=== PATIENT | female | born 1950 | race African-American/Black ===

== ENCOUNTER 2016-06-01 12:06 | Emergency (ER) | payer SELFPAY ==
--- NOTE | 2016-06-01 12:17 | PDOC ---
History of Present Illness - General Chief Complaint: Cold Symptoms Stated Complaint: COUGH,CHILLS Time Seen by Provider: 06/01/16 12:13 History Source: Patient Exam Limitations: No Limitations - History of Present Illness Initial Comments: 65 yo F presents with congestion, persistent cough, and malaise for past 1 week. She has had intermittent fevers and chills, body aches. She had a flu shot this year. She has been taking various cold and flu medicines without relief. Up until today, the cough was dry, painful, and nonproductive. She has started to produce thick white sputum today. Past History - Past Medical History Allergies/Adverse Reactions: Allergies Allergy/AdvReac Type Severity Reaction Status Date / Time No Known Allergies Allergy Verified 06/01/16 12:08 Home Medications: Ambulatory Orders Nebivolol HCl [Bystolic] 5 mg PO DAILY 08/19/15 Albuterol Sulfate Inhaler - [Ventolin HFA Inhaler -] 1 - 2 inh PO QID #1 inhaler 06/01/16 Azithromycin [Zithromax 250mg Tablets -] 250 mg PO UTDICT #6 tab 06/01/16 Mucinex 06/01/16 Prednisone [Deltasone -] 40 mg PO DAILY #8 tablet 06/01/16 Valacyclovir HCl [Valtrex -] 500 mg PO BID 06/01/16 HTN: Yes Hypercholesterolemia: Yes Seizures: Yes - Psycho/Social/Smoking Cessation Hx Anxiety: No Suicidal Ideation: No Smoking Status: Yes Smoking History: Never smoked Have you smoked in the past 12 months: No Number of Cigarettes Smoked Daily: 0 Information on smoking cessation initiated: No Hx Alcohol Use: Yes (SOCIAL WEEKENDS) Drug/Substance Use Hx: No Substance Use Type: None Review of Systems - Review of Systems Able to Perform ROS?: Yes Comments:: GENERAL/CONSTITUTIONAL: No fever or chills. No weakness. HEAD, EYES, EARS, NOSE AND THROAT: No change in vision. +Sore throat and B/L ear pressure. CARDIOVASCULAR: No chest pain or shortness of breath. RESPIRATORY: +Cough and wheezing. No hemoptysis. GASTROINTESTINAL: No nausea, vomiting, diarrhea or constipation. GENITOURINARY: No dysuria, frequency, or change in urination. MUSCULOSKELETAL: No joint or muscle swelling or pain. No neck or back pain. SKIN: No rash NEUROLOGIC: No headache, vertigo, loss of consciousness, or change in strength/ sensation. ENDOCRINE: No increased thirst. No abnormal weight change. HEMATOLOGIC/LYMPHATIC: No anemia, easy bleeding, or history of blood clots. ALLERGIC/IMMUNOLOGIC: No hives or skin allergy. *Physical Exam - Vital Signs Last Vital Signs Temp Pulse Resp BP Pulse Ox 98.5 F 74 22 187/101 99 06/01/16 12:07 06/01/16 12:07 06/01/16 12:07 06/01/16 12:07 06/01/16 12:07 - Physical Exam Comments: GENERAL: Awake, alert, and fully oriented, in no acute distress. Appears ill but nontoxic. HEAD: No signs of trauma EYES: PERRLA, EOMI, sclera anicteric, conjunctiva clear ENT: Auricles normal inspection, hearing grossly normal. B/L TMs with clear effusions. EACs normal in appearance. Nose with boggy turbinates B/L. Oropharynx is erythematous. Tonsils mildly enlarged, no exudates. NECK: Normal ROM, supple, no lymphadenopathy, JVD, or masses LUNGS: Dec air entry B/L. +Diffuse exp wheezes. HEART: Regular rate and rhythm, normal S1 and S2, no murmurs, rubs or gallops ABDOMEN: Soft, nontender, normoactive bowel sounds. No guarding, no rebound. No masses EXTREMITIES: Normal range of motion, no edema. No clubbing or cyanosis. No cords, erythema, or tenderness NEUROLOGICAL: Cranial nerves II through XII grossly intact. Normal speech, normal gait SKIN: Warm, Dry, normal turgor, no rashes or lesions noted. Medical Decision Making - Medical Decision Making 06/01/16 14:04 Pt reassessed. SHe reports some improvement in her symptoms. She has improved air entry on lung exam, although still with scattered wheezes. Will treat with steroids, albuterol, and abx for acute bronchitis. *DC/Admit/Observation/Transfer Diagnosis at time of Disposition: Cough Acute bronchitis Qualifiers: Bronchitis organism: unspecified organism Qualified Code(s): J20.9 - Acute bronchitis, unspecified - Discharge Dispostion Disposition: HOME Condition at time of disposition: Improved Admit: No - Prescriptions Prescriptions: Prednisone [Deltasone -] 40 mg PO DAILY #8 tablet Albuterol Sulfate Inhaler - [Ventolin HFA Inhaler -] 1 - 2 inh PO QID #1 inhaler Azithromycin [Zithromax 250mg Tablets -] 250 mg PO UTDICT #6 tab - Patient Instructions Printed Discharge Instructions: DI for Acute Bronchitis
[2016-06-01 12:26] VITALS: TEMP 98.5; BMI 30.2
[2016-06-01] MEDS ORDERED: ALBUTEROL SO4 2.5/IPRATROPIUM 0.5 INH SOL 3 ML VIAL.NEB. NEB ONE (12:34)
[2016-06-01] MEDS: ALBUTEROL SO4 2.5/IPRATROPIUM 0.5 INH SOL 3 ML VIAL.NEB. NEB SCH ×3 (12:35→13:21)
[2016-06-01] MEDS ORDERED: predniSONE 20 MG TABLET (UD) PO ONE (14:00)
[2016-06-01] MEDS ORDERED: predniSONE 20 MG TABLET (UD) ONE (14:15)
[2016-06-01 14:24] VITALS: BP 168/80; PULSE 78
== END 2016-06-01 14:36 | disposition home or self-care (01) ==
LOC: FER 12:06
PROC: 3E0F7GC Introduction of Other Therapeutic Substance into Respiratory Tract, Via Natural or Artificial Opening (ICD-10-PCS; principal; 2016-06-01)
DX: J20.9 Acute bronchitis, unspecified (principal); R05 Cough; I10 Essential (primary) hypertension; E78.00 Pure hypercholesterolemia, unspecified; R56.9 Unspecified convulsions
CPT/HCPCS: 71020-TC; 87804; 99283-25

== ENCOUNTER 2017-09-05 11:48 | Emergency (ER) | payer OTHER ==
[2017-09-05 11:55] VITALS: TEMP 98.2; BMI 28.1
[2017-09-05] MEDS ORDERED: ASPIRIN 325 MG TABLET PO ONE (12:12)
[2017-09-05] MEDS ORDERED: ATORVASTATIN CA 80 MG TABLET (FP) PO ONE (12:12)
[2017-09-05] MEDS ORDERED: NITROGLYCERIN SUBLINGUAL 1/150 0.4 MG TAB SL PRN (12:13)
[2017-09-05] MEDS ORDERED: HEPARIN - 25,000 UNIT in SODIUM CHLORIDE 495 ML IV SCH (12:15)
[2017-09-05] MEDS ORDERED: HEPARIN NA (PORCINE) 5,000 UNITS/ML 1ML VIAL IVPUSH PRN ×3 (12:15→12:32)
--- NOTE | 2017-09-05 12:22 | PDOC ---
Attending Attestation - Resident Resident Name: CandyMahad - ED Attending Attestation I have performed the following: I have examined & evaluated the patient, The case was reviewed & discussed with the resident, I agree w/resident's findings & plan, Exceptions are as noted - HPI HPI: 09/05/17 12:19 67 F with h/o HTN, HLD, DM, hypothyroid presents to ED with chest pain, nausea, vomiting, and diaphoresis x 2 days. Pt states that the pain began 2 days ago with a burning sensation in her chest. This gradually worsened and progressed to a constant pressure-like pain. Pt endorses nausea and vomiting and profuse sweating. Denies SOB. Denies leg swelling. Denies tearing pain or radiation of pain to the back. - Physicial Exam PE: 09/05/17 12:20 "GENERAL: Awake, alert, and fully oriented, in no acute distress. HEAD: No signs of trauma EYES: PERRLA, EOMI, sclera anicteric, conjunctiva clear ENT: Auricles normal inspection, hearing grossly normal, nares patent, oropharynx clear without exudates. Moist mucosa NECK: Nontender, no stepoffs, Normal ROM, supple, no lymphadenopathy, JVD, or masses LUNGS: Breath sounds equal, clear to auscultation bilaterally. No wheezes, and no crackles HEART: Regular rate and rhythm, normal S1 and S2, no murmurs, rubs or gallops ABDOMEN: Soft, nontender, normoactive bowel sounds. No guarding, no rebound. No masses EXTREMITIES: Normal range of motion, no edema. No clubbing or cyanosis. No cords, erythema, or tenderness NEUROLOGICAL: Cranial nerves II through XII intact. 5/5 strength and sensation in all extremities, Normal speech, normal gait, normal cerebellar function SKIN: Warm, Dry, normal turgor, no rashes or lesions noted. " - Medical Decision Making 09/05/17 12:20 67 F with chest pain, diaphoresis, N/V. EKG with acute STEMI. 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
[2017-09-05] MEDS ORDERED: HEPARIN NA (PORCINE) 5,000 UNITS/ML 1ML VIAL IVPUSH ONE (12:32)
[2017-09-05] MEDS ORDERED: NITROGLYCERIN SUBLINGUAL 1/150 0.4 MG TAB ONE (12:33)
[2017-09-05] MEDS ORDERED: ASPIRIN 325 MG TABLET ONE (12:33)
[2017-09-05] MEDS ORDERED: ATORVASTATIN CA 80 MG TABLET (FP) ONE (12:34)
[2017-09-05] MEDS ORDERED: HEPARIN NA (PORCINE) 5,000 UNITS/ML 1ML VIAL ONE (12:34)
[2017-09-05] MEDS ORDERED: HEPARIN INFUSION - 25,000 UNITS/500 ML INFUS.BAG IVPB ONE (12:35)
[2017-09-05 12:37] LABS: BASO % 0.9 % (0-2.0); EOS % 0.9 % (0-4.5); HEMATOCRIT 45.3 % (32.4-45.2); MCH 28.4 pg (25.7-33.7); MCHC 33.1 g/dl (32.0-36.0); MEAN CELL VOLUME 85.6 fl (80-96); MEAN PLT VOLUME 8.7 fl (7.5-11.1); MONO % 9.7 % (3.8-10.2); NEUT % 53.5 % (42.8-82.8); PLATELET COUNT 260 K/MM3 (134-434); RBC 5.29 M/mm3 (3.60-5.2); RDW 14.5 % (11.6-15.6)
--- NOTE | 2017-09-05 12:39 | CON.CARD ---
Cardiology Consult (text) - Consultation Consultation Note: Cardiology Received a call from ER at 12: 24pm Returned call within 2 minutes and spoke to ER attending Dr. Wynn. He reports the patient is presenting with symptoms and ECG consistent with acute STEMI. The case was reviewed. Vitals are stable and oxygenation is normal. I am currently 35-45 minutes away from the hospital. Recommended: -stat Labs -ASA 325mg x 1 now -To begin UFH gtts provided no active absolute contraindications -To immediately activate the streamlined STEMI line to [facility] the ER has in place so patient can be transferred for cath -Plavix loading to be discussed with energy efficiency specialist crime prevention police officer, Dr. Wynn will do that. -Advised to proceed with above plans to avoid any therapeutic delay or transfer delay as ER has direct contact to [facility] labor/excavator for urgent STEMI -Will obtain ECG to review in interim
--- NOTE | 2017-09-05 12:55 | PDOC ---
History of Present Illness <Tamiko Wynnan - Last Filed: 09/05/17 13:06> - General History Source: Patient Exam Limitations: No Limitations - History of Present Illness Initial Comments: 09/05/17 14:27 67 F with h/o HTN, HLD, DM, hypothyroid presents to ED with chest pain, nausea, vomiting, and diaphoresis x 2 days. Pt states that the pain began 2 days ago with a burning sensation in her chest. This gradually worsened and progressed to a constant pressure-like pain. Pt endorses nausea and vomiting and profuse sweating after every time she eats. Denies SOB. Denies leg swelling. Denies tearing pain <CandyMahad - Last Filed: 09/05/17 14:29> - General Chief Complaint: Nausea/Vomiting Stated Complaint: VOMITTING Time Seen by Provider: 09/05/17 12:01 Past History <Pedro Wynn - Last Filed: 09/05/17 13:06> - Past Medical History COPD: No HTN: Yes Hypercholesterolemia: Yes Seizures: Yes Thyroid Disease: Yes - Suicide/Smoking/Psychosocial Hx Smoking Status: Yes Smoking History: Former smoker Have you smoked in the past 12 months: No Number of Cigarettes Smoked Daily: 0 If you are a former smoker, when did you quit?: 1993 Information on smoking cessation initiated: No Hx Alcohol Use: Yes (SOCIAL WEEKENDS) Drug/Substance Use Hx: No Substance Use Type: None <GuptaMahad - Last Filed: 09/05/17 14:29> - Past Medical History Allergies/Adverse Reactions: Allergies Allergy/AdvReac Type Severity Reaction Status Date / Time No Known Allergies Allergy Verified 09/05/17 11:52 Home Medications: Ambulatory Orders Nebivolol HCl [Bystolic] 5 mg PO DAILY 08/19/15 Albuterol Sulfate Inhaler - [Ventolin HFA Inhaler -] 1 - 2 inh PO QID #1 inhaler 06/01/16 Azithromycin [Zithromax 250mg Tablets -] 250 mg PO UTDICT #6 tab 06/01/16 Mucinex 06/01/16 Valacyclovir HCl [Valtrex -] 500 mg PO BID 06/01/16 predniSONE [Deltasone -] 40 mg PO DAILY #8 tablet 06/01/16 Review of Systems - Review of Systems Able to Perform ROS?: Yes Is the patient limited Faroese proficient: No Constitutional: Yes: Diaphoresis HEENTM: No: Symptoms Reported Respiratory: Yes: See HPI Cardiac (ROS): Yes: See HPI ABD/GI: No: Symptoms Reported : No: Symptoms Reported Integumentary: Yes: See HPI All Other Systems: Reviewed and Negative <Mahad Gupta - Last Filed: 09/05/17 14:29> *Physical Exam - Vital Signs Last Vital Signs Temp Pulse Resp BP Pulse Ox 98.2 F 109 H 18 134/82 99 09/05/17 11:52 09/05/17 11:52 09/05/17 11:52 09/05/17 11:52 09/05/17 11:52 <KingsleyPedro - Last Filed: 09/05/17 13:06> - Vital Signs Last Vital Signs Temp Pulse Resp BP Pulse Ox 98.2 F 109 H 18 134/82 99 09/05/17 11:52 09/05/17 11:52 09/05/17 11:52 09/05/17 11:52 09/05/17 11:52 - Physical Exam Comments: 09/05/17 12:20 GENERAL: Awake, alert, and fully oriented, in no acute distress. HEAD: No signs of trauma EYES: PERRLA, EOMI, sclera anicteric, conjunctiva clear ENT: Auricles normal inspection, hearing grossly normal, nares patent, oropharynx clear without exudates. Moist mucosa NECK: Nontender, no stepoffs, Normal ROM, supple, no lymphadenopathy, JVD, or masses LUNGS: Breath sounds equal, clear to auscultation bilaterally. No wheezes, and no crackles HEART: Regular rate and rhythm, normal S1 and S2, no murmurs, rubs or gallops ABDOMEN: Soft, nontender, normoactive bowel sounds. No guarding, no rebound. No masses EXTREMITIES: Normal range of motion, no edema. No clubbing or cyanosis. No cords, erythema, or tenderness NEUROLOGICAL: Cranial nerves II through XII intact. 5/5 strength and sensation in all extremities, Normal speech, normal gait, normal cerebellar function SKIN: Warm, Dry, normal turgor, no rashes or lesions noted. <Mahad Gupta - Last Filed: 09/05/17 14:29> ED Treatment Course - LABORATORY CBC & Chemistry Diagram: 09/05/17 12:25 09/05/17 12:25 - ADDITIONAL ORDERS Additional order review: 09/05/17 12:25 RBC 5.29 H MCV 85.6 MCHC 33.1 RDW 14.5 MPV 8.7 Neutrophils % 53.5 Lymphocytes % 35.0 Monocytes % 9.7 Eosinophils % 0.9 Basophils % 0.9 - RADIOLOGY Radiology Studies Ordered: Category Date Time Status CHEST X-RAY PORTABLE* [RAD] Stat Radiology 09/05/17 12:12 Ordered - Medications Given in the ED: ED Medications Discontinued Medications Generic Name Dose Route Start Last Admin Trade Name Freq PRN Reason Stop Dose Admin Aspirin 325 mg 09/05/17 12:12 09/05/17 12:48 Asa - PO 09/05/17 12:13 325 mg ONCE ONE Administration Atorvastatin Calcium 80 mg 09/05/17 12:12 09/05/17 12:48 Lipitor - PO 09/05/17 12:13 80 mg ONCE ONE Administration <Pedro Wynn - Last Filed: 09/05/17 13:06> - LABORATORY CBC & Chemistry Diagram: 09/05/17 12:25 09/05/17 12:25 - ADDITIONAL ORDERS Additional order review: 09/05/17 12:25 RBC 5.29 H MCV 85.6 MCHC 33.1 RDW 14.5 MPV 8.7 Neutrophils % 53.5 Lymphocytes % 35.0 Monocytes % 9.7 Eosinophils % 0.9 Basophils % 0.9 - Medications Given in the ED: ED Medications Discontinued Medications Generic Name Dose Route Start Last Admin Trade Name Freq PRN Reason Stop Dose Admin Aspirin 325 mg 09/05/17 12:12 09/05/17 12:48 Asa - PO 09/05/17 12:13 325 mg ONCE ONE Administration Atorvastatin Calcium 80 mg 09/05/17 12:12 09/05/17 12:48 Lipitor - PO 09/05/17 12:13 80 mg ONCE ONE Administration <Mahad Gupta - Last Filed: 09/05/17 14:29> Medical Decision Making - Medical Decision Making 09/05/17 14:29 67 F with chest pain, diaphoresis, N/V. EKG with acute STEMI. 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
[2017-09-05 13:01] LABS: ALBUMIN 4.4 g/dl (3.4-5.0); ANION GAP 7 (8-16); BILIRUBIN,TOTAL 0.6 mg/dL (0.2-1.0); BLOOD UREA NITROGEN 23 mg/dL (7-18); CHLORIDE 99 mmol/L (98-107); CO2 30 mmol/L (21-32); CREATININE 1.2 mg/dL (0.55-1.02); GLUCOSE,RANDOM 103 mg/dL (74-106); SGPT/ALT 27 U/L (12-78); SODIUM 136 mmol/L (136-145); TOT PROT 8.9 g/dl (6.4-8.2)
[2017-09-05 13:02] LABS: ALK PHOS 84 U/L (45-117); N-TERMINAL BNP 6201.48 pg/ml (5-125)
[2017-09-05 13:06] LABS: POTASSIUM 4.5 mmol/L (3.5-5.1); SGOT/AST 38 U/L (15-37)
--- NOTE | 2017-09-05 13:11 | EKG ---
Test Reason : Blood Pressure : / mmHG Vent. Rate : 097 BPM Atrial Rate : 097 BPM P-R Int : 182 ms QRS Dur : 082 ms QT Int : 402 ms P-R-T Axes : 063 062 206 degrees QTc Int : 510 ms NORMAL SINUS RHYTHM POSSIBLE LEFT ATRIAL ENLARGEMENT ST ELEVATION CONSIDER LATERAL INJURY OR ACUTE INFARCT PROLONGED QT ACUTE CT / STEMI ABNORMAL ECG WHEN COMPARED WITH ECG OF 19-AUG-2015 20:36, T WAVE INVERSION NOW EVIDENT IN INFERIOR LEADS T WAVE INVERSION NOW EVIDENT IN ANTEROLATERAL LEADS QT HAS LENGTHENED Confirmed by MD Clarence, Jeremiah ([id number]) on 09/05/2017 1:11:00 PM Referred By: Confirmed By:Jeremiah Lima MD
[2017-09-05 13:18] LABS: INR 1.06 (0.82-1.09)
[2017-09-05 13:21] LABS: ACTIVATED PTT 31.1 SECONDS (26.9-34.4)
[2017-09-05 13:26] VITALS: BP 130/83; PULSE 115
== END 2017-09-05 13:06 | disposition short-term general hospital (02) ==
LOC: JER 11:48
PROC: 3E033GC Introduction of Other Therapeutic Substance into Peripheral Vein, Percutaneous Approach (ICD-10-PCS; principal; 2017-09-05)
DX: I21.3 ST elevation (STEMI) myocardial infarction of unspecified site (principal); I10 Essential (primary) hypertension; E78.5 Hyperlipidemia, unspecified; E11.9 Type 2 diabetes mellitus without complications; E03.9 Hypothyroidism, unspecified; Z87.891 Personal history of nicotine dependence
CPT/HCPCS: 36415; 80053; 82550; 82553; 83880; 84484; 85025; 85610; 85730; 93005; 93010; 96374; 96376; 99285-25; J1644

== ENCOUNTER 2017-10-29 21:07 | Inpatient (IN) | payer OTHER ==
--- NOTE | 2017-10-29 21:14 | PDOC ---
Rapid Medical Evaluation Time Seen by Provider: 10/29/17 21:11 Medical Evaluation: Allergies Allergy/AdvReac Type Severity Reaction Status Date / Time No Known Allergies Allergy Verified 09/05/17 11:52 10/29/17 21:11 The patient presents with a chief complaint of: elevated bp readings I have performed a brief in-person evaluation of this patient. Pertinent physical exam findings: vss, I have ordered the following: provider to determine The patient will proceed to the ED for further evaluation. Discharge Disposition - Referrals Referrals: Kayode Brown MD [Primary Care Provider] - - Patient Instructions - Post Discharge Activity
[2017-10-29 21:18] VITALS: BMI 27.8
--- NOTE | 2017-10-29 22:05 | PDOC ---
History of Present Illness - General Chief Complaint: Blood Pressure Problem Stated Complaint: BLOOD PRESSURE PROBLEM Time Seen by Provider: 10/29/17 21:11 History Source: Patient Exam Limitations: No Limitations - History of Present Illness Initial Comments: This is a 67 YOF with h/o recent STEMI (seen here in the ED on 09/05/17 and transferred to [facility] where she had left heart cath), HTN, HLD, CHF, DM, and hypothyroid who presents c/o elevated blood pressure readings at home over the past few days, without any new symptoms, and despite taking her normal blood pressure medications (lisinopril 40 mg) 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 She denies headache, vision changes, new numbness/tingling/focal weakness, chest pain, SOB, abdominal pain, or any other recent symptoms. She was discontinued off Lasix about a month ago. Her PCP is Dr. Canela and her medical i d sales is Dr. Holder. Past History - Past Medical History Allergies/Adverse Reactions: Allergies Allergy/AdvReac Type Severity Reaction Status Date / Time No Known Allergies Allergy Verified 10/29/17 21:11 Home Medications: Ambulatory Orders Aspirin [ASA -] 81 mg PO DAILY 10/29/17 Atorvastatin Ca [Lipitor] 10 mg PO HS 10/29/17 Carvedilol 6.25 mg PO BID 10/29/17 Lisinopril [Prinivil -] 40 mg PO DAILY 10/29/17 Methimazole 5 mg PO TID 10/29/17 Methocarbamol 500 mg PO PRN PRN 10/29/17 Tramadol HCl 50 mg PO DAILY PRN 10/29/17 COPD: No HTN: Yes Hypercholesterolemia: Yes Seizures: Yes Thyroid Disease: Yes - Suicide/Smoking/Psychosocial Hx Smoking Status: Yes Smoking History: Former smoker Have you smoked in the past 12 months: No Number of Cigarettes Smoked Daily: 0 If you are a former smoker, when did you quit?: 1993 Information on smoking cessation initiated: No Hx Alcohol Use: No Drug/Substance Use Hx: No Substance Use Type: None Review of Systems - Review of Systems Able to Perform ROS?: Yes Constitutional: No: Chills, Fever, Unexplained wgt Loss HEENTM: No: Nose Congestion, Throat Pain Respiratory: No: Cough, Shortness of Breath Cardiac (ROS): No: Chest Pain, Palpitations ABD/GI: No: Constipated, Diarrhea, Nausea, Vomiting : No: Burning, Dysuria Musculoskeletal: No: Back Pain, Neck Pain Integumentary: No: Bruising, Rash Neurological: No: Headache, Numbness, Tingling, Weakness, Dizziness Endocrine: No: Unexplained Weight Gain, Unexplained Weight Loss *Physical Exam - Vital Signs Last Vital Signs Temp Pulse Resp BP Pulse Ox 98.3 F 86 18 162/106 99 10/29/17 21:11 10/29/17 21:11 10/29/17 21:11 10/29/17 21:11 10/29/17 21:11 - Physical Exam General Appearance: Yes: Nourished, Appropriately Dressed, Other (nontoxic and well appearing adul female in no distress answering questions appropriately). No: Apparent Distress HEENT: positive: EOMI, Normal Voice, Hearing Grossly Normal. negative: Scleral Icterus (R), Scleral Icterus (L), Nasal Congestion Neck: positive: Trachea midline, Supple. negative: Tender, Rigid Respiratory/Chest: positive: Lungs Clear, Normal Breath Sounds. negative: Respiratory Distress, Crackles, Rhonchi, Stridor, Wheezing Cardiovascular: positive: Regular Rhythm, Regular Rate, S1, S2. negative: Edema , JVD, Murmur Gastrointestinal/Abdominal: positive: Normal Bowel Sounds, Soft. negative: Tender, Organomegaly, Pulsatile Mass, Guarding Musculoskeletal: positive: Normal Inspection. negative: Decreased Range of Motion, Vertebral Tenderness Extremity: positive: Normal Capillary Refill, Normal Inspection, Normal Range of Motion. negative: Tender, Cyanosis Integumentary: positive: Normal Color, Dry, Warm. negative: Erythema, Rash, Bruising Neurologic: positive: masseur/masseuse II-XII NML intact, Fully Oriented, Alert, Normal Mood/ Affect, Normal Response, Motor Strength 5/5 Heart Score/ECG Review #1 NSR, rate 60, with TWI in I, II, aVL, [id number] ED Treatment Course - LABORATORY CBC & Chemistry Diagram: 10/29/17 22:27 10/29/17 22:27 Medical Decision Making - Medical Decision Making 10/29/17 22:05 Adult patient with h/o recent STEMI p/w HTN. Initial Vital Signs Temp Pulse Resp BP Pulse Ox 98.3 F 86 18 162/106 99 10/29/17 21:11 10/29/17 21:11 10/29/17 21:11 10/29/17 21:11 10/29/17 21:11 Exam: As noted in Physical Exam section. DDX IBNLT: stress/pain response, primary (essential) HTN, renal disease, medications (e.g. OCPs, NSAIDs, antidepressants, steroids), hypercortisolism ( Barb syndrome), primary hyperaldosteronism (Conn syndrome), pheochromocytoma , hyper/hypothyroidism, hyperparathyroidism, coarctation of aorta, obstructive sleep apnea, etc. Main emergency concern is to r/o hypertensive emergency. W/U ordered: CBC, CMP, Mg, Phos, TSH, Cardiac panel, BNP, UA, UCx, EKG, CXR TX ordered: lisinopril, carvedilol Unlikely hypertensive emergency at Pt has no VALDEZ, AMS, visual change, neuro sxs, angina, pulmonary edema, or e/o acute renal failure. EKG: Reviewed; results as noted in ECG Review section. Laboratory Tests 10/29/17 10/29/17 10/29/17 22:27 22:27 22:54 WBC 4.2 RBC 3.93 Hgb 11.4 Hct 33.7 D MCV 85.7 MCH 29.0 MCHC 33.8 RDW 14.5 Plt Count 194 D MPV 8.5 Absolute Neuts (auto) 1.6 Neutrophils % 38.5 L D Lymphocytes % 49.3 H D Monocytes % 8.3 Eosinophils % 2.9 D Basophils % 1.0 Nucleated RBC % 0 Sodium 143 Potassium 4.1 Chloride 107 Carbon Dioxide 31 Anion Gap 5 L BUN 24 H Creatinine 1.3 H Creat Clearance w eGFR 40.73 Random Glucose 98 Calcium 8.8 Phosphorus 3.6 Magnesium 2.3 Total Bilirubin 0.3 AST 14 L ALT 21 Alkaline Phosphatase 71 Creatine Kinase 116 Troponin I < 0.02 B-Natriuretic Peptide 126.36 H Total Protein 7.0 Albumin 3.7 TSH 3.74 Urine Color Straw Urine Appearance Clear Urine pH 6.0 Ur Specific [place] 1.012 Urine Protein Negative Urine Glucose (UA) Negative Urine Ketones Negative Urine Blood Negative Urine Nitrite Negative Urine Bilirubin Negative Urine Urobilinogen Negative Ur Leukocyte Esterase Negative BUN and Cr are a bit elevated but similar to prior values. Reassessment: Patient states feeling the same, very worried about her heart and does not want to go home. Repeat VS: LUE BP re-checked to be 180/104 ADMIT The Pt is unsafe for discharge at this time. They require further hospital observation, workup, and treatment. Microblog sent to [facility] for admission. Decision to Admit order placed for Tele Obs, Dr. Youssef. *DC/Admit/Observation/Transfer Diagnosis at time of Disposition: T wave inversion in EKG, ALECIA (acute kidney injury) Hypertension Qualifiers: Hypertension type: unspecified Qualified Code(s): I10 - Essential (primary) hypertension - Discharge Dispostion Condition at time of disposition: Guarded Decision to Admit order: Yes - Referrals - Patient Instructions - Post Discharge Activity
--- NOTE | 2017-10-29 22:10 | PDOC ---
Attending Attestation - Resident Resident Name: Selina Walter - ED Attending Attestation I have performed the following: I have examined & evaluated the patient, The case was reviewed & discussed with the resident, I agree w/resident's findings & plan - HPI HPI: 10/29/17 22:36 The patient is a 67 year old female, with a significant past medical history of STEMI (08/2017 s/p catheter), HTN, HLD, DM, hypothyroidism, who presents to the emergency department with, elevated blood pressure. As per patient, she has been obtaining elevated blood pressure readings lately. She reports an approximately 20 point systolic difference between her right and left arm readings. She is currently being followed up by Dr. Brown for this. Prior to her arrival she took an extra dosage of her Lisinopril. She reports to be asymptomatic at this time. She denies recent fevers, chills, headache or dizziness. She denies recent nausea, vomit, diarrhea or constipation. She denies recent dysuria, frequency, urgency or hematuria. She denies recent chest pain or shortness of breath. Allergies: NKA Primary Care Physician: Dr. Brown - Physicial Exam PE: 10/30/17 07:15 Agree with resident exam. <Rafael Muse - Last Filed: 10/30/17 07:15> - Medical Decision Making 10/30/17 19:53 Pt comes with uncontrolled BP, despite compliance with her meds. She has no physical complaints. She comes because her BP was running high and she got scared. We will treat her with extra doses of her meds. Pt will be admitted to obs, as needed. <Koki Dick - Last Filed: 10/30/17 19:54> Heart Score/ECG Review #1 10/30/17 00:11 EKG performed at: 30 October 2017 at 0:00:17 Vent Rate 60 bpm [place] interval 204 ms QRS duration 82 ms QT/QTc 452/452 ms P-R-T axes 70 55 144 Normal sinus rhythm T wave abnormality, consider anterolateral ischemia Abnormal ECG <Rafael Muse - Last Filed: 10/30/17 07:15> Attestations - Attestations 10/29/17 22:37 Documentation prepared by Nirvannie Goberdan, acting as resident medical officer for Koki Dick MD. <Rafael Muse - Last Filed: 10/30/17 07:15>
[2017-10-29] MEDS ORDERED: CARVEDILOL 6.25 MG TABLET (FP) PO ONE (22:41)
[2017-10-29] MEDS ORDERED: LISINOPRIL 20 MG TABLET (FP) PO ONE (22:42)
[2017-10-29] MEDS ORDERED: CARVEDILOL 3.125 MG TABLET (FP) ONE (22:49)
[2017-10-29] MEDS ORDERED: LISINOPRIL 20 MG TABLET (FP) ONE (22:49)
[2017-10-29 22:52] LABS: EOS % 2.9 % (0-4.5); HEMATOCRIT 33.7 % (32.4-45.2); HEMOGLOBIN 11.4 GM/dL (10.7-15.3); LYMPH % 49.3 % (8-40); MCHC 33.8 g/dl (32.0-36.0); MEAN CELL VOLUME 85.7 fl (80-96); MEAN PLT VOLUME 8.5 fl (7.5-11.1); MONO % 8.3 % (3.8-10.2); NEUT % 38.5 % (42.8-82.8); PLATELET COUNT 194 K/MM3 (134-434); RBC 3.93 M/mm3 (3.60-5.2); RDW 14.5 % (11.6-15.6); WHITE BLOOD COUNT 4.2 K/mm3 (4.0-10.0)
[2017-10-29 23:10] LABS: URINE APPEARANCE CLEAR; URINE BILIRUBIN NEGATIVE (<2.0 mg/dL); URINE COLOR STRAW; URINE GLUCOSE (UA) NEGATIVE (NEGATIVE); URINE KETONE NEGATIVE (NEGATIVE); URINE LEUK ESTERASE NEGATIVE (NEGATIVE); URINE NITRITE NEGATIVE (NEGATIVE); URINE PROTEIN NEGATIVE (NEGATIVE); URINE UROBILINOGEN NEGATIVE mg/dL (0.2-1.0)
[2017-10-29 23:11] LABS: ALBUMIN 3.7 g/dl (3.4-5.0); ANION GAP 5 (8-16); BILIRUBIN,TOTAL 0.3 mg/dL (0.2-1.0); BLOOD UREA NITROGEN 24 mg/dL (7-18); CALCIUM 8.8 mg/dL (8.5-10.1); CHLORIDE 107 mmol/L (98-107); CO2 31 mmol/L (21-32); CREATININE 1.3 mg/dL (0.55-1.02); GLUCOSE,RANDOM 98 mg/dL (74-106); MAGNESIUM 2.3 mg/dL (1.8-2.4); PHOSPHOROUS 3.6 mg/dL (2.5-4.9); POTASSIUM 4.1 mmol/L (3.5-5.1); SGOT/AST 14 U/L (15-37); SGPT/ALT 21 U/L (12-78); SODIUM 143 mmol/L (136-145)
[2017-10-29 23:20] LABS: ALK PHOS 71 U/L (45-117); N-TERMINAL BNP 126.36 pg/ml (5-125)
[2017-10-30] MEDS ORDERED: hydrALAZINE HCL 20 MG/ML VIAL IVPUSH ONE (02:16)
--- NOTE | 2017-10-30 02:23 | HP ---
CHIEF COMPLAINT: "HTN" PCP: Dr. Love HISTORY OF PRESENT ILLNESS: Patient is a 67 y/o female with a history of recent STEMI (09/05), HTN, HLD, CHF , DM, and hyperthyroidism who presents with high blood pressure. She took her blood pressure at home and had readings of 201/109 in the left arm and 167/101 in the right arm. She states she saw her PCP on the 10/25 and she had high blood pressure there but they did not change any of the medication. She has a follow up appointment for wednesday. She states she is compliant with her medications. She tries to eat a low salt diet. She denies headache, chest pain, nausea, blurry vision, or dizziness. ER course was notable for: (1) (2) (3) Recent Travel: no PAST MEDICAL HISTORY: STEMI (09/05), HTN, HLD, CHF, DM, and hyperthyroidism PAST SURGICAL HISTORY: Social History: Smoking: quit in Alcohol: socially Drugs: denies Family History: Allergies No Known Allergies Allergy (Verified 10/29/17 21:11) HOME MEDICATIONS: Home Medications Medication Instructions Recorded Aspirin [ASA -] 81 mg PO DAILY 10/29/17 Atorvastatin Ca [Lipitor] 10 mg PO HS 10/29/17 Carvedilol 6.25 mg PO BID 10/29/17 Lisinopril [Prinivil -] 40 mg PO DAILY 10/29/17 Methimazole 5 mg PO TID 10/29/17 Methocarbamol 500 mg PO PRN PRN 10/29/17 Tramadol HCl 50 mg PO DAILY PRN 10/29/17 REVIEW OF SYSTEMS CONSTITUTIONAL: Absent: fever, chills, diaphoresis, generalized weakness, malaise, loss of appetite, HEENT: Absent: difficulty swallowing, mouth swelling, ear pain, eye pain, visual changes CARDIOVASCULAR: Absent: chest pain, syncope, palpitations, irregular heart rate, lightheadedness , peripheral edema RESPIRATORY: Absent: cough, shortness of breath, dyspnea with exertion, orthopnea, wheezing, stridor, hemoptysis GASTROINTESTINAL: Absent: abdominal pain, abdominal distension, nausea, vomiting, diarrhea, constipation, melena, hematochezia GENITOURINARY: Absent: dysuria, frequency, urgency, hesitancy, hematuria, flank pain, genital pain MUSCULOSKELETAL: Absent: myalgia, arthralgia, joint swelling, back pain, neck pain NEUROLOGIC: Absent: headache, focal weakness or paresthesias, dizziness, unsteady gait, seizure, bladder or bowel incontinence PSYCHIATRIC: Absent: anxiety, depression, PHYSICAL EXAMINATION Vital Signs - 24 hr 10/29/17 10/29/17 21:11 22:05 Temperature 98.3 F Pulse Rate 86 Respiratory 18 Rate Blood Pressure 162/106 Blood Pressure 161/81 [Left Arm] Blood Pressure 183/95 [Right Arm] O2 Sat by Pulse 99 Oximetry (%) GENERAL: Awake, alert, and fully oriented, in no acute distress. HEAD: Normal with no signs of trauma. EYES: Pupils equal, round and reactive to light, extraocular movements intact, EARS, NOSE, THROAT: Moist mucous membranes. NECK: Normal range of motion, supple without lymphadenopathy, JVD, or masses. LUNGS: Breath sounds equal, clear to auscultation bilaterally. HEART: Regular rate and rhythm, normal S1 and S2 without murmur, rub or gallop. ABDOMEN: Soft, nontender, not distended, normoactive bowel sounds MUSCULOSKELETAL: Normal range of motion at all joints. No bony deformities or tenderness. No CVA tenderness. LOWER EXTREMITIES: No peripheral edema. NEUROLOGICAL: Cranial nerves II-XII intact. Normal speech. Normal gait. Laboratory Results - last 24 hr 10/29/17 10/29/17 10/29/17 22:27 22:27 22:54 WBC 4.2 RBC 3.93 Hgb 11.4 Hct 33.7 D MCV 85.7 MCH 29.0 MCHC 33.8 RDW 14.5 Plt Count 194 D MPV 8.5 Absolute Neuts (auto) 1.6 Neutrophils % 38.5 L D Lymphocytes % 49.3 H D Monocytes % 8.3 Eosinophils % 2.9 D Basophils % 1.0 Nucleated RBC % 0 Sodium 143 Potassium 4.1 Chloride 107 Carbon Dioxide 31 Anion Gap 5 L BUN 24 H Creatinine 1.3 H Creat Clearance w eGFR 40.73 Random Glucose 98 Calcium 8.8 Phosphorus 3.6 Magnesium 2.3 Total Bilirubin 0.3 AST 14 L ALT 21 Alkaline Phosphatase 71 Creatine Kinase 116 Troponin I < 0.02 B-Natriuretic Peptide 126.36 H Total Protein 7.0 Albumin 3.7 TSH 3.74 Urine Color Straw Urine Appearance Clear Urine pH 6.0 Ur Specific [place] 1.012 Urine Protein Negative Urine Glucose (UA) Negative Urine Ketones Negative Urine Blood Negative Urine Nitrite Negative Urine Bilirubin Negative Urine Urobilinogen Negative Ur Leukocyte Esterase Negative ASSESSMENT/PLAN: Patient is a 67 y/o female with a history of recent STEMI (09/05), HTN, HLD, CHF , DM, and hyperthyroidism who presents with hypertension. #HTN - Hydralazine IV push 10 mg - Carvedilol 12.5 BID - Lisinopril 20 mg BID - HCTZ 12.5 qam - f/u BP - TSH within normal limits : 3.74 #STEMI on 09/05 - aspirin 81 mg #HLD - Atorvastatin 10 mg #Hyperthyroidism - Methimazole 500 mg #Chronic low back pain - home medications held for now #DVT ppx - Heparin TID Visit type - Emergency Visit Emergency Visit: Yes ED Registration Date: 10/30/17 Care time: The patient presented to the Emergency Department on the above date and was hospitalized for further evaluation of their emergent condition. - New Patient This patient is new to me today: Yes Date on this admission: 10/30/17 - Critical Care Critical Care patient: No Hospitalist Screening - Colonoscopy Questionnaire Colonoscopy Questionnaire: Colonoscopy Questionnaire - Patient: 50 - 75 years old and never had a screening colonoscopy: Unknown History of colon or rectal polyps, or CA: Unknown History of IBD, Crohn's disease or UC: Unknown History of abdominal radiation therapy as a child: Unknown - Relative: 1 with colon or rectal CA, or polyps at age 60 or younger: Unknown Colon or rectal CA diagnosed at age 45 or younger: Unknown Multiple relatives with colon or rectal CA: Unknown - Outcome: Screening Result: Negative Screen
--- NOTE | 2017-10-30 02:45 | PN ---
Teaching Attending Note Name of Resident: Lina Hager ATTENDING PHYSICIAN STATEMENT I saw and evaluated the patient. I reviewed the resident's note and discussed the case with the resident. I agree with the resident's findings and plan as documented. SUBJECTIVE: Patient is a 67 year old woman with h/o recent STEMI (seen here in the ED on 01/13 and transferred to [facility] where she had left heart cath), HTN, HLD, CHF, DM , and hypothyroid who presents c/o elevated blood pressure readings at home over the past few days, without any new symptoms, and despite taking her normal blood pressure medications (lisinopril 40 mg) and an extra dose tonight [employer]. Has had hypertenison for over 10 years but has never had consistently good control according to her. She denies headache, vision changes, new numbness/ tingling/focal weakness, chest pain, SOB, abdominal pain, or any other recent symptoms. She was discontinued off Lasix about a month ago. OBJECTIVE: Alert and in no acute distress Vital Signs Period Temp Pulse Resp BP Sys/Quach Pulse Ox Last 24 Hr 98.3 F 86 18 161-183/81-106 99 HEENT: No Jaundice, eye redness or discharge, PERRLA, EOMI. Fundi not seen. Normocephalic, atraumatic. External ears are normal and hearing is grossly intact. No nasal discharge. Neck: Supple, nontender. No palpable adenopathy or thyromegaly. No JVD Chest: Good effort. Clear to auscultation and percussion. Heart: Regular. No S3, rub or murmur Abdomen: Not distended, soft, nontender and no HSM. No rebound or guarding. Normoactive bowel sounds. Ext: Peripheral pulses intact. No leg edema. Skin: Warm and dry. No petechiae, rash or ecchymosis. Neuro: Alert. Oriented x3. CN 2-12 grossly intact. Sensation grossly intact in all four extremities and DTR are symmetric. Current Medications Generic Name Dose Route Start Last Admin Trade Name Freq PRN Reason Stop Dose Admin Aspirin 81 mg 10/30/17 10:00 Asa - PO DAILY ARI Atorvastatin Calcium 10 mg 10/30/17 22:00 Lipitor - PO HS ARI Carvedilol 12.5 mg 10/30/17 10:00 Coreg - PO BID ARI Heparin Sodium (Porcine) 5,000 unit 10/30/17 06:00 Heparin - SQ TID [facility] Hydrochlorothiazide 12.5 mg 10/30/17 10:00 Hctz - PO DAILY [facility] Lisinopril 20 mg 10/30/17 10:00 Prinivil PO BID [facility] Methimazole 5 mg 10/30/17 06:00 Tapazole - PO TID [facility] Home Medications Medication Instructions Recorded Aspirin [ASA -] 81 mg PO DAILY 10/29/17 Atorvastatin Ca [Lipitor] 10 mg PO HS 10/29/17 Carvedilol 6.25 mg PO BID 10/29/17 Lisinopril [Prinivil -] 40 mg PO DAILY 10/29/17 Methimazole 5 mg PO TID 10/29/17 Methocarbamol 500 mg PO PRN PRN 10/29/17 Tramadol HCl 50 mg PO DAILY PRN 10/29/17 Abnormal Lab Results 10/29/17 10/29/17 22:27 22:27 Neutrophils % 38.5 L D Lymphocytes % 49.3 H D Anion Gap 5 L BUN 24 H Creatinine 1.3 H AST 14 L B-Natriuretic Peptide 126.36 H ASSESSMENT AND PLAN: 1. Hypertensive urgency - Reason for spike in her BP is unclear. Has failed to respond to oral medications in the ER. Elevated BUN/Cr may be related to hypertension. Will urge oral fluids to correct any superimposed dehydration. Will give one dose of IV hydralazine 10 mg and continue with oral regimen - Carvedilol, Lisinopril and HCTZ. No evidence of ACS at this time. Need for low salt diet, exercise and weight loss stressed. 2. CAD/Recent STEMI - Continue home regimen. 3. DVT prophylaxis - Heparin 5000u sq tid. 4. Advance directives - Full code
[2017-10-30] MEDS ORDERED: hydrALAZINE HCL 20 MG/ML VIAL ONE (03:07)
[2017-10-30] MEDS ORDERED: HEPARIN NA (PORCINE) 5,000 UNITS/ML 1ML VIAL ONE (06:21)
[2017-10-30] MEDS: METHIMAZOLE 5 MG TABLET (FP) PO SCH ×3 (06:40→22:02)
[2017-10-30] MEDS: HEPARIN NA (PORCINE) 5,000 UNITS/ML 1ML VIAL SQ SCH ×3 (06:40→22:01)
--- NOTE | 2017-10-30 09:05 | EKG ---
Test Reason : Blood Pressure : / mmHG Vent. Rate : 060 BPM Atrial Rate : 060 BPM P-R Int : 204 ms QRS Dur : 082 ms QT Int : 452 ms P-R-T Axes : 070 055 144 degrees QTc Int : 452 ms NORMAL SINUS RHYTHM T WAVE ABNORMALITY, CONSIDER ANTEROLATERAL ISCHEMIA ABNORMAL ECG WHEN COMPARED WITH ECG OF 05-SEP-2017 12:02, VENT. RATE HAS DECREASED BY [address] NO LONGER ELEVATED IN ANTEROLATERAL LEADS NONSPECIFIC T WAVE ABNORMALITY HAS REPLACED INVERTED T WAVES IN INFERIOR LEADS T WAVE INVERSION LESS EVIDENT IN LATERAL LEADS QT HAS SHORTENED Confirmed by ARIE VILLATORO, ROHAN ([id number]) on 10/30/2017 9:05:08 AM Referred By: Confirmed By:ROHAN SARGENT MD
[2017-10-30] MEDS: HYDROCHLOROTHIAZIDE 12.5 MG CAPSULE (FP) PO SCH (09:46)
[2017-10-30] MEDS: LISINOPRIL 20 MG TABLET (FP) PO SCH ×2 (09:46→22:02)
[2017-10-30] MEDS: ASPIRIN 81 MG CHEWABLE TABLETS PO SCH (09:46)
[2017-10-30] MEDS: CARVEDILOL 12.5 MG TABLET (FP) PO SCH ×2 (09:47→22:01)
[2017-10-30 10:10] LABS: URINE APPEARANCE CLEAR; URINE BILIRUBIN NEGATIVE (<2.0 mg/dL); URINE COLOR LTYELLOW; URINE GLUCOSE (UA) NEGATIVE (NEGATIVE); URINE KETONE NEGATIVE (NEGATIVE); URINE LEUK ESTERASE NEGATIVE (NEGATIVE); URINE NITRITE NEGATIVE (NEGATIVE); URINE PROTEIN NEGATIVE (NEGATIVE); URINE UROBILINOGEN NEGATIVE mg/dL (0.2-1.0)
--- NOTE | 2017-10-30 18:58 | HOSP ---
Subjective - Review of Symptoms Events since last encounter: Patient has no new symptoms , comfortable. Vital Signs Temperature 98.0 F 10/30/17 18:22 Pulse Rate 61 10/30/17 18:22 Respiratory Rate 18 10/30/17 18:22 Blood Pressure 167/101 10/30/17 18:22 O2 Sat by Pulse Oximetry (%) 98 10/30/17 18:22 GENERAL: Awake, alert, and fully oriented, in no acute distress. HEAD: Normal with no signs of trauma. EYES: Pupils equal, round and reactive to light, extraocular movements intact, EARS, NOSE, THROAT: Moist mucous membranes. NECK: Normal range of motion, supple without lymphadenopathy, JVD, or masses. LUNGS: Breath sounds equal, clear to auscultation bilaterally. HEART: Regular rate and rhythm, normal S1 and S2 without murmur, rub or gallop. ABDOMEN: Soft, nontender, not distended, normoactive bowel sounds MUSCULOSKELETAL: Normal range of motion at all joints. No bony deformities or tenderness. No CVA tenderness. EXTREMITIES: No peripheral edema. NEUROLOGICAL: Cranial nerves II-XII intact. Normal speech. Normal gait. CBCD WBC 4.2 K/mm3 (4.0-10.0) 10/29/17 22: RBC 3.93 M/mm3 (3.60-5.2) 10/29/17 22: Hgb 11.4 GM/dL (10.7-15.3) 10/29/17 22: Hct 33.7 % (32.4-45.2) D 10/29/17: MCV 85.7 fl (80-96) 10/29/17: MCHC 33.8 g/dl (32.0-36.0) 10/29/17 22: RDW 14.5 % (11.6-15.6) 10/29/17: Plt Count 194 K/MM3 (134-434) D 10/29/17: MPV 8.5 fl (7.5-11.1) 10/29/17 22: CMP Sodium 143 mmol/L (136-145) 10/29/17 22: Potassium 4.1 mmol/L (3.5-5.1) 10/29/17: Chloride 107 mmol/L (98-107) 10/29/17 22:27 Carbon Dioxide 31 mmol/L (21-32) 10/29/17 22:27 Anion Gap 5 (8-16) L 10/29/17 22:27 BUN 24 mg/dL (7-18) H 10/29/17 22:27 Creatinine 1.3 mg/dL (0.55-1.02) H 10/29/17 22:27 Creat Clearance w eGFR 40.73 (>60) 10/29/17 22:27 Random Glucose 98 mg/dL (74-106) 10/29/17 22:27 Calcium 8.8 mg/dL (8.5-10.1) 10/29/17 22:27 Total Bilirubin 0.3 mg/dL (0.2-1.0) 10/29/17 22:27 AST 14 U/L (15-37) L 10/29/17 22:27 ALT 21 U/L (12-78) 10/29/17 22:27 Alkaline Phosphatase 71 U/L (45-117) 10/29/17 22:27 Total Protein 7.0 g/dl (6.4-8.2) 10/29/17 22:27 Albumin 3.7 g/dl (3.4-5.0) 10/29/17 22:27 CARDIAC ENZYMES Creatine Kinase 116 IU/L (26-192) 10/29/17 22:27 Troponin I < 0.02 ng/ml (0.00-0.05) 10/30/17 05:03 Current Medications Generic Name Dose Route Start Last Admin Trade Name Arnulfoq PRN Reason Stop Dose Admin Aspirin 81 mg 10/30/17 10:00 10/30/17 09:46 Asa - PO 81 mg DAILY ARI Administration Atorvastatin Calcium 10 mg 10/30/17 22:00 Lipitor - PO HS [facility] Carvedilol 12.5 mg 10/30/17 10:00 10/30/17 09:47 Coreg - PO 12.5 mg BID ARI Administration Heparin Sodium (Porcine) 5,000 unit 10/30/17 06:00 10/30/17 14:21 Heparin - SQ 5,000 unit TID ARI Administration Hydrochlorothiazide 12.5 mg 10/30/17 10:00 10/30/17 09:46 Hctz - PO 12.5 mg DAILY ARI Administration Lisinopril 20 mg 10/30/17 10:00 10/30/17 09:46 Prinivil PO 20 mg BID ARI Administration Methimazole 5 mg 10/30/17 06:00 10/30/17 14:21 Tapazole - PO 5 mg TID ARI Administration Home Medications Medication Instructions Recorded Aspirin [ASA -] 81 mg PO DAILY 10/29/17 Atorvastatin Ca [Lipitor] 10 mg PO HS 10/29/17 Carvedilol 6.25 mg PO BID 10/29/17 Lisinopril [Prinivil -] 40 mg PO DAILY 10/29/17 Methimazole 5 mg PO TID 10/29/17 Methocarbamol 500 mg PO PRN PRN 10/29/17 Tramadol HCl 50 mg PO DAILY PRN 10/29/17 Laboratory Tests 10/29/17 10/30/17 22:27 05:03 Troponin I < 0.02 < 0.02 A/P: Patient is a 67 y/o female with a history of recent STEMI (09/05), HTN, HLD, CHF , DM, and hyperthyroidism who presents with high blood pressure. As per patient , she checked her blood pressure at home and had readings of 201/109 in the left arm and 167/101 in the right arm. # Hypertensive urgency - Failed to oral medications in the ER. given a dose of IV hydralazine 10 mg in ED. and continued with oral regimen - Carvedilol, Lisinopril and HCTZ. No evidence of ACS at this time. low salt diet, exercise and weight loss stressed. # ARF: Elevated BUN/Cr possible due to hypertension. gentle IV hydration given, repeat the levels in am. # CAD/Recent STEMI - Continue home regimen. DVT prophylaxis - Heparin 5000u sq tid. Advance directives - Full code Physical Examination Vital Signs: Vital Signs Temperature 98.0 F 10/30/17 18:22 Pulse Rate 61 10/30/17 18:22 Respiratory Rate 18 10/30/17 18:22 Blood Pressure 167/101 10/30/17 18:22 O2 Sat by Pulse Oximetry (%) 98 10/30/17 18:22 Labs: CBC, BMP 10/29/17 22:27 10/29/17 22:27
[2017-10-30] MEDS: ATORVASTATIN CA 10 MG TABLET (FP) PO SCH (22:01)
[2017-10-31] MEDS: METHIMAZOLE 5 MG TABLET (FP) PO SCH ×3 (06:12→21:02)
[2017-10-31] MEDS: HEPARIN NA (PORCINE) 5,000 UNITS/ML 1ML VIAL SQ SCH ×3 (06:12→21:02)
[2017-10-31 07:37] LABS: BASO % 1.3 % (0-2.0); EOS % 2.4 % (0-4.5); HEMATOCRIT 34.8 % (32.4-45.2); HEMOGLOBIN 11.8 GM/dL (10.7-15.3); LYMPH % 56.2 % (8-40); MCH 29.1 pg (25.7-33.7); MCHC 33.9 g/dl (32.0-36.0); MEAN CELL VOLUME 85.6 fl (80-96); MEAN PLT VOLUME 9.3 fl (7.5-11.1); MONO % 8.3 % (3.8-10.2); NEUT % 31.8 % (42.8-82.8); PLATELET COUNT 168 K/MM3 (134-434); RBC 4.06 M/mm3 (3.60-5.2); RDW 14.2 % (11.6-15.6); WHITE BLOOD COUNT 3.7 K/mm3 (4.0-10.0)
[2017-10-31 08:04] LABS: CHLORIDE 104 mmol/L (98-107); SODIUM 141 mmol/L (136-145)
[2017-10-31 08:18] LABS: ALBUMIN 3.6 g/dl (3.4-5.0); ALK PHOS 70 U/L (45-117); ANION GAP 8 (8-16); BILIRUBIN,TOTAL 0.5 mg/dL (0.2-1.0); BLOOD UREA NITROGEN 19 mg/dL (7-18); CALCIUM 9.1 mg/dL (8.5-10.1); CO2 29 mmol/L (21-32); CREATININE 0.8 mg/dL (0.55-1.02); GLUCOSE,RANDOM 84 mg/dL (74-106); SGOT/AST 17 U/L (15-37); SGPT/ALT 21 U/L (12-78); TOT PROT 7.1 g/dl (6.4-8.2)
[2017-10-31] MEDS: CARVEDILOL 12.5 MG TABLET (FP) PO SCH ×2 (10:08→21:03)
[2017-10-31] MEDS: LISINOPRIL 20 MG TABLET (FP) PO SCH ×2 (10:08→21:02)
[2017-10-31] MEDS: HYDROCHLOROTHIAZIDE 12.5 MG CAPSULE (FP) PO SCH (10:08)
[2017-10-31] MEDS: ASPIRIN 81 MG CHEWABLE TABLETS PO SCH (10:08)
[2017-10-31] MEDS ORDERED: amLODIPine BESYLATE 5 MG TABLET (FP) PO SCH (11:30)
--- NOTE | 2017-10-31 14:51 | PN ---
Progress Note (short form) - Note Progress Note: Patient is better but worried about having so elevated blood pressure Vital Signs Temperature 97.6 F 10/31/17 05:48 Pulse Rate 63 10/31/17 05:48 Respiratory Rate 18 10/31/17 09:00 Blood Pressure 146/74 10/31/17 05:48 O2 Sat by Pulse Oximetry (%) 98 10/31/17 09:00 GENERAL: Awake, alert, and fully oriented, in no acute distress. HEAD: Normal with no signs of trauma. EYES: Pupils equal, round and reactive to light, extraocular movements intact, EARS, NOSE, THROAT: Moist mucous membranes. NECK: Normal range of motion, supple without lymphadenopathy, JVD, or masses. LUNGS: Breath sounds equal, clear to auscultation bilaterally. HEART: Regular rate and rhythm, normal S1 and S2 without murmur, rub or gallop. ABDOMEN: Soft, nontender, not distended, normoactive bowel sounds MUSCULOSKELETAL: Normal range of motion at all joints. No bony deformities or tenderness. No CVA tenderness. EXTREMITIES: No peripheral edema. NEUROLOGICAL: Cranial nerves II-XII intact. Normal speech. Normal gait. CBCD WBC 3.7 K/mm3 (4.0-10.0) L 10/31/17 06:10 RBC 4.06 M/mm3 (3.60-5.2) 10/31/17 06:10 Hgb 11.8 GM/dL (10.7-15.3) 10/31/17 06:10 Hct 34.8 % (32.4-45.2) 10/31/17 06:10 MCV 85.6 fl (80-96) 10/31/17 06:10 MCHC 33.9 g/dl (32.0-36.0) 10/31/17 06:10 RDW 14.2 % (11.6-15.6) 10/31/17 06:10 Plt Count 168 K/MM3 (134-434) 10/31/17 06:10 MPV 9.3 fl (7.5-11.1) 10/31/17 06:10 CMP Sodium 141 mmol/L (136-145) 10/31/17 06:10 Potassium 4.0 mmol/L (3.5-5.1) 10/31/17 06:10 Chloride 104 mmol/L (98-107) 10/31/17 06:10 Carbon Dioxide 29 mmol/L (21-32) 10/31/17 06:10 Anion Gap 8 (8-16) 10/31/17 06:10 BUN 19 mg/dL (7-18) H 10/31/17 06:10 Creatinine 0.8 mg/dL (0.55-1.02) 10/31/17 06:10 Creat Clearance w eGFR > 60 (>60) 10/31/17 06:10 Random Glucose 84 mg/dL (74-106) 10/31/17 06:10 Calcium 9.1 mg/dL (8.5-10.1) 10/31/17 06:10 Total Bilirubin 0.5 mg/dL (0.2-1.0) 10/31/17 06:10 AST 17 U/L (15-37) 10/31/17 06:10 ALT 21 U/L (12-78) 10/31/17 06:10 Alkaline Phosphatase 70 U/L (45-117) 10/31/17 06:10 Total Protein 7.1 g/dl (6.4-8.2) 10/31/17 06:10 Albumin 3.6 g/dl (3.4-5.0) 10/31/17 06:10 CARDIAC ENZYMES Creatine Kinase 116 IU/L (26-192) 10/29/17 22:27 Troponin I < 0.02 ng/ml (0.00-0.05) 10/30/17 05:03 Current Medications Generic Name Dose Route Start Last Admin Trade Name Tita PRN Reason Stop Dose Admin Amlodipine Besylate 5 mg 10/31/17 11:30 10/31/17 12:36 Norvasc - PO 5 mg DAILY ARI Administration Aspirin 81 mg 10/30/17 10:00 10/31/17 10:08 Asa - PO 81 mg DAILY ARI Administration Atorvastatin Calcium 10 mg 10/30/17 22:00 10/30/17 22:01 Lipitor - PO 10 mg HS ARI Administration Carvedilol 12.5 mg 10/30/17 10:00 10/31/17 10:08 Coreg - PO 12.5 mg BID ARI Administration Heparin Sodium (Porcine) 5,000 unit 10/30/17 06:00 10/31/17 13:02 Heparin - SQ 5,000 unit TID ARI Administration Hydrochlorothiazide 12.5 mg 10/30/17 10:00 10/31/17 10:08 Hctz - PO 12.5 mg DAILY ARI Administration Lisinopril 20 mg 10/30/17 10:00 10/31/17 10:08 Prinivil PO 20 mg BID ARI Administration Methimazole 5 mg 10/30/17 06:00 10/31/17 13:01 Tapazole - PO 5 mg TID ARI Administration Home Medications Medication Instructions Recorded Aspirin [ASA -] 81 mg PO DAILY 10/29/17 Atorvastatin Ca [Lipitor] 10 mg PO HS 10/29/17 Methimazole 5 mg PO TID 10/29/17 Amlodipine Besylate [Norvasc -] 5 mg PO DAILY #30 tablet 10/31/17 Carvedilol [Coreg -] 12.5 mg PO BID #60 tablet 10/31/17 Hydrochlorothiazide [Hctz -] 12.5 mg PO DAILY #30 cap 10/31/17 A/P: Patient is a 67 y/o female with a history of recent STEMI (09/05), HTN, HLD, CHF , DM, and hyperthyroidism who presents with high blood pressure. As per patient , she checked her blood pressure at home and had readings of 201/109 in the left arm and 167/101 in the right arm. # Hypertensive urgency - improving, on oral Carvedilol, Lisinopril and HCTZ.increased to 25mg added Norvasc 10 mg daily , No evidence of ACS at this time. low salt diet, exercise and weight loss stressed. # ARF: Elevated BUN/Cr possible due to hypertension. gentle IV hydration given, repeat the levels in am. # CAD/Recent STEMI - Continue home regimen. DVT prophylaxis - Heparin 5000u sq tid. Advance directives - Full code Visit type - Emergency Visit Emergency Visit: Yes ED Registration Date: 10/30/17 Care time: The patient presented to the Emergency Department on the above date and was hospitalized for further evaluation of their emergent condition. - New Patient This patient is new to me today: No - Critical Care Critical Care patient: No - Discharge Referral Referred to [facility] No
[2017-10-31] MEDS ORDERED: amLODIPine BESYLATE 10 MG TABLET (FP) PO SCH (15:59)
--- NOTE | 2017-10-31 16:01 | PN ---
Physical Exam: SUBJECTIVE: Patient seen and examined at bedside. No acute events overnight. Pt complains of persistent high blood pressure but is currently asymptomatic. Denies headache/dizziness, nausea/vomiting, fever/chills. OBJECTIVE: Vital Signs Period Temp Pulse Resp BP Sys/Quach Pulse Ox Last 24 Hr 97.6 F-98.0 F 61-65 18-20 138-167/74-101 98-98 GENERAL: Awake, alert, and fully oriented, in no acute distress. HEAD: Normal with no signs of trauma. EYES: Pupils equal, round and reactive to light, extraocular movements intact, EARS, NOSE, THROAT: Moist mucous membranes. NECK: Normal range of motion, supple without lymphadenopathy, JVD, or masses. LUNGS: Breath sounds equal, clear to auscultation bilaterally. HEART: Regular rate and rhythm, normal S1 and S2 without murmur, rub or gallop. ABDOMEN: Soft, nontender, not distended, normoactive bowel sounds MUSCULOSKELETAL: Normal range of motion at all joints. No bony deformities or tenderness. No CVA tenderness. LOWER EXTREMITIES: No peripheral edema. NEUROLOGICAL: Cranial nerves II-XII intact. Normal speech. Normal gait. Laboratory Results - last 24 hr 10/31/17 10/31/17 06:10 06:10 WBC 3.7 L RBC 4.06 Hgb 11.8 Hct 34.8 MCV 85.6 MCH 29.1 MCHC 33.9 RDW 14.2 Plt Count 168 MPV 9.3 Absolute Neuts (auto) 1.2 Neutrophils % 31.8 L Lymphocytes % 56.2 H Monocytes % 8.3 Eosinophils % 2.4 Basophils % 1.3 Nucleated RBC % 0 Sodium 141 Potassium 4.0 Chloride 104 Carbon Dioxide 29 Anion Gap 8 BUN 19 H Creatinine 0.8 Creat Clearance w eGFR > 60 Random Glucose 84 Calcium 9.1 Total Bilirubin 0.5 AST 17 ALT 21 Alkaline Phosphatase 70 Total Protein 7.1 Albumin 3.6 Active Medications Generic Name Dose Route Start Last Admin Trade Name Freq PRN Reason Stop Dose Admin Amlodipine Besylate 10 mg 10/31/17 15:59 Norvasc - PO DAILY ARI Aspirin 81 mg 10/30/17 10:00 10/31/17 10:08 Asa - PO 81 mg DAILY ARI Administration Atorvastatin Calcium 10 mg 10/30/17 22:00 10/30/17 22:01 Lipitor - PO 10 mg HS ARI Administration Carvedilol 12.5 mg 10/30/17 10:00 10/31/17 10:08 Coreg - PO 12.5 mg BID ARI Administration Heparin Sodium (Porcine) 5,000 unit 10/30/17 06:00 10/31/17 13:02 Heparin - SQ 5,000 unit TID ARI Administration Hydrochlorothiazide 12.5 mg 10/30/17 10:00 10/31/17 10:08 Hctz - PO 12.5 mg DAILY ARI Administration Lisinopril 20 mg 10/30/17 10:00 10/31/17 10:08 Prinivil PO 20 mg BID ARI Administration Methimazole 5 mg 10/30/17 06:00 10/31/17 13:01 Tapazole - PO 5 mg TID ARI Administration ASSESSMENT/PLAN: 67F with a history of recent STEMI (09/05), HTN, HLD, CHF, DM, and hyperthyroidism who presents with hypertension. #HTN; BP persistently elevated despite BP meds given. Today 160/97. Pt is currently asymptomatic. -Increased Amlodipine from 5 to 10 mg PO QD -cont Carvedilol 12.5 mg PO BID -cont Lisinopril 20 mg PO BID -cont HCTZ 12.5 mg PO QAM -TSH within normal limits: 3.74 -Cardio consulted; await recs #STEMI on 09/05 -cont Aspirin 81 mg PO QD #HLD -cont Atorvastatin 10 mg PO HS #Hyperthyroidism -cont Methimazole 5 mg PO TID #Chronic low back pain - home medications held for now #DVT ppx - Heparin 5000U SQ TID #FEN -no IVf needed -lytes wnl, recheck lytes in AM -sodium-controlled diet dispo -full code Visit type - Emergency Visit Emergency Visit: Yes ED Registration Date: 10/30/17 Care time: The patient presented to the Emergency Department on the above date and was hospitalized for further evaluation of their emergent condition. - New Patient This patient is new to me today: Yes Date on this admission: 10/31/17 - Critical Care Critical Care patient: No
[2017-10-31] MEDS: ATORVASTATIN CA 10 MG TABLET (FP) PO SCH (21:03)
[2017-11-01] MEDS: METHIMAZOLE 5 MG TABLET (FP) PO SCH ×2 (05:24→13:01)
[2017-11-01] MEDS: HEPARIN NA (PORCINE) 5,000 UNITS/ML 1ML VIAL SQ SCH ×2 (05:24→13:01)
[2017-11-01 06:38] LABS: BASO % 1.3 % (0-2.0); HEMATOCRIT 34.7 % (32.4-45.2); HEMOGLOBIN 11.7 GM/dL (10.7-15.3); LYMPH % 55.2 % (8-40); MCHC 33.8 g/dl (32.0-36.0); MEAN PLT VOLUME 8.6 fl (7.5-11.1); MONO % 9.9 % (3.8-10.2); NEUT % 30.6 % (42.8-82.8); PLATELET COUNT 181 K/MM3 (134-434); RBC 4.04 M/mm3 (3.60-5.2); RDW 14.1 % (11.6-15.6); WHITE BLOOD COUNT 3.7 K/mm3 (4.0-10.0)
[2017-11-01 07:05] LABS: ALBUMIN 3.6 g/dl (3.4-5.0); ANION GAP 5 (8-16); BLOOD UREA NITROGEN 16 mg/dL (7-18); CHLORIDE 106 mmol/L (98-107); CO2 30 mmol/L (21-32); GLUCOSE,RANDOM 85 mg/dL (74-106); POTASSIUM 3.7 mmol/L (3.5-5.1); SGOT/AST 13 U/L (15-37); SODIUM 141 mmol/L (136-145)
[2017-11-01 07:08] LABS: ALK PHOS 70 U/L (45-117); BILIRUBIN,TOTAL 0.5 mg/dL (0.2-1.0); CREATININE 0.7 mg/dL (0.55-1.02); SGPT/ALT 21 U/L (12-78)
[2017-11-01] MEDS: ASPIRIN 81 MG CHEWABLE TABLETS PO SCH (09:09)
[2017-11-01] MEDS: LISINOPRIL 20 MG TABLET (FP) PO SCH (09:09)
[2017-11-01] MEDS: CARVEDILOL 12.5 MG TABLET (FP) PO SCH (09:09)
[2017-11-01] MEDS: HYDROCHLOROTHIAZIDE 12.5 MG CAPSULE (FP) PO SCH (09:09)
--- NOTE | 2017-11-01 09:56 | CON.CARD ---
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 Has had hypertenison for over 10 years but has never had consistently good control according to her. She denies headache, vision changes, new numbness/ tingling/focal weakness, chest pain, SOB, abdominal pain, or any other recent symptoms. She was discontinued off Lasix about a month ago. - History Source History Provided By: Patient Limitations to Obtaining History: No Limitations - Alcohol/Substance Use Hx Alcohol Use: No - Smoking History Smoking history: Former smoker Have you smoked in the past 12 months: No Aproximately how many cigarettes per day: 0 If you are a former smoker, when did you quit?: 1993 Home Medications - Allergies Allergies/Adverse Reactions: Allergies Allergy/AdvReac Type Severity Reaction Status Date / Time No Known Allergies Allergy Verified 10/29/17 21:11 - Home Medications Home Medications: Ambulatory Orders Aspirin [ASA -] 81 mg PO DAILY 10/29/17 Atorvastatin Ca [Lipitor] 10 mg PO HS 10/29/17 Methimazole 5 mg PO TID 10/29/17 Amlodipine Besylate [Norvasc -] 5 mg PO DAILY #30 tablet 10/31/17 Carvedilol [Coreg -] 12.5 mg PO BID #60 tablet 10/31/17 Hydrochlorothiazide [Hctz -] 12.5 mg PO DAILY #30 cap 10/31/17 Vital Signs: Vital Signs Temperature 97.9 F 11/01/17 05:05 Pulse Rate 64 11/01/17 05:05 Respiratory Rate 18 11/01/17 08:21 Blood Pressure 138/63 11/01/17 05:05 O2 Sat by Pulse Oximetry (%) 98 11/01/17 08:21 - Other Data Labs, Other Data: CBC, BMP 11/01/17 05:30 11/01/17 05:30 Assessment/Plan Aspirin [ASA -] 81 mg PO DAILY 10/29/17 Atorvastatin Ca [Lipitor] 10 mg PO HS 10/29/17 Methimazole 5 mg PO TID 10/29/17 Amlodipine Besylate [Norvasc -] 5 mg PO DAILY #30 tablet 10/31/17 Carvedilol [Coreg -] 12.5 mg PO BID #60 tablet 10/31/17 Hydrochlorothiazide [Hctz -] 12.5 mg PO DAILY #30 cap 10/31/17 Received ECG at 12:42pm. ECG shows NSR 97bpm. [address] elevations in V4-V6 with T wave inversions V2-V6. Called back to speak to Dr. Wynn at which time EMS was present and picking patient up for transfer to [facility]. Dr. Wynn had reviewed the history and ECG with iron handler interventional cardiology at [facility] and patient was accepted for urgent transfer. Original Note: Cardiology Consult (text) - Consultation Consultation Note: Cardiology Received a call from ER at 12: 24pm Returned call within 2 minutes and spoke to ER attending Dr. Wynn. He reports the patient is presenting with symptoms and ECG consistent with acute STEMI. The case was reviewed. Vitals are stable and oxygenation is normal. I am currently 35-45 minutes away from the hospital. Recommended: -stat Labs -ASA 325mg x 1 now -To begin UFH gtts provided no active absolute contraindications -To immediately activate the streamlined STEMI line to [facility] the ER has in place so patient can be transferred for cath -Plavix loading to be discussed with stroboscope operator iron handler, Dr. Wynn will do that. -Advised to proceed with above plans to avoid any therapeutic delay or transfer delay as ER has direct contact to [facility] laborer vegetable farm for urgent STEMI -Will obtain ECG to review in interim
[2017-11-01] MEDS ORDERED: HYDROCHLOROTHIAZIDE 25 MG TABLET (FP) PO SCH (11:17)
--- NOTE | 2017-11-01 13:00 | PN ---
Progress Note (short form) - Note Progress Note: Called by treatment team for cardiology consult. Patient underwent recent cardiac cath at [facility] and sees Dr. Kemar Mcdonald as outpatient. I have placed a consult order for his team to see patient while in-house. Please recall as needed. Thanks!
--- NOTE | 2017-11-01 14:22 | CON.CARD ---
Consult Consult Specialty:: Cardiology Referred by:: Dr riggins Reason for Consultation:: hypertension - History of Present Illness Chief Complaint: hypertension History of Present Illness: 67 year old female with a PMH of HTN, diet controlled DM, hyperthyroidism, and HLD. She presented to [facility] 09/05/17 with SSCP that she described as chest burning and related it to eating a heavy meal was found to have ST elevations and positive cardiac markers. She was transferred to the 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 There was a large region of apical hypokinesis with EF 30%. Echocardiogram 2 days later showed Moderate apical hypokinesis. Minimally decreased left ventricular ejection fraction. Estimated ejection fraction: 50-55 %. She presented to the ER with elevated BP but no chest pain, orthopnea, pnd or edema. Feeling panic and stress. Brett negative. - History Source History Provided By: Patient, Family Member, Medical Record - Alcohol/Substance Use Hx Alcohol Use: No - Smoking History Smoking history: Former smoker Have you smoked in the past 12 months: No Aproximately how many cigarettes per day: 0 If you are a former smoker, when did you quit?: 1993 Home Medications - Allergies Allergies/Adverse Reactions: Allergies Allergy/AdvReac Type Severity Reaction Status Date / Time No Known Allergies Allergy Verified 10/29/17 21:11 - Home Medications Home Medications: Ambulatory Orders Aspirin [ASA -] 81 mg PO DAILY 10/29/17 Atorvastatin Ca [Lipitor] 10 mg PO HS 10/29/17 Methimazole 5 mg PO TID 10/29/17 Amlodipine Besylate [Norvasc -] 5 mg PO DAILY #30 tablet 10/31/17 Carvedilol [Coreg -] 12.5 mg PO BID #60 tablet 10/31/17 Hydrochlorothiazide [Hctz -] 12.5 mg PO DAILY #30 cap 10/31/17 Vital Signs: Vital Signs Temperature 97.8 F 11/01/17 10:14 Pulse Rate 79 11/01/17 10:14 Respiratory Rate 18 11/01/17 10:14 Blood Pressure 156/90 11/01/17 10:14 O2 Sat by Pulse Oximetry (%) 98 11/01/17 08:21 Constitutional: Yes: No Distress, Calm Eyes: Yes: EOM Intact HENT: Yes: Normocephalic Neck: Yes: Trachea Midline Respiratory: Yes: CTA Bilaterally Gastrointestinal: Yes: Normal Bowel Sounds, Soft Cardiovascular: Yes: Regular Rate and Rhythm JVD: No Carotid Bruit: No PMI: Non-Displaced Heart Sounds: Yes: S1, S2 Musculoskeletal: Yes: WNL Extremities: Yes: WNL Edema: No Peripheral Pulses WNL: Yes - Other Data Labs, Other Data: CBC, BMP 11/01/17 05:30 11/01/17 05:30 Imaging - Results Chest X-ray: Report Reviewed EKG: Report Reviewed Problem List - Problems (1) Hypertension Assessment/Plan: BP is elevated, can be controlled as an outpatient. She has Tako Tsubo cardiomyopathy and normal coronaries. Add lisinopril 20 mg daily. Follow with our group as an outpatient. No need for further inpatient testing. Code(s): I10 - ESSENTIAL (PRIMARY) HYPERTENSION Qualifiers: Hypertension type: essential hypertension Qualified Code(s): I10 - Essential (primary) hypertension
[2017-11-01 14:58] VITALS: BP 142/68; PULSE 78
--- NOTE | 2017-11-01 15:39 | DS ---
Physical Exam: SUBJECTIVE: Patient is a 67 y/o female with a history of recent STEMI (09/05), HTN, HLD, CHF , DM, and hyperthyroidism who presents with high blood pressure. Patient reports no acute events overnight and has no complaints. OBJECTIVE: Vital Signs Period Temp Pulse Resp BP Sys/Quach Pulse Ox Last 24 Hr 97.8 F-98.2 F 61-79 18-188 138-178/63-99 98-98 PHYSICAL EXAM GENERAL: Awake, alert, and fully oriented, in no acute distress. HEAD: Normal with no signs of trauma. NECK: Normal range of motion, supple without lymphadenopathy, JVD, or masses. LUNGS: Breath sounds equal, clear to auscultation bilaterally. HEART: Regular rate and rhythm, normal S1 and S2 without murmur, rub or gallop. ABDOMEN: Soft, nontender, not distended, normoactive bowel sounds MUSCULOSKELETAL: Normal range of motion at all joints. LOWER EXTREMITIES: No peripheral edema. NEUROLOGICAL: Cranial nerves II-XII intact. Normal speech. Normal gait. LABS Laboratory Results - last 24 hr 11/01/17 11/01/17 05:30 05:30 WBC 3.7 L RBC 4.04 Hgb 11.7 Hct 34.7 MCV 86.0 MCH 29.0 MCHC 33.8 RDW 14.1 Plt Count 181 MPV 8.6 Absolute Neuts (auto) 1.1 Neutrophils % 30.6 L Lymphocytes % 55.2 H Monocytes % 9.9 Eosinophils % 3.0 Basophils % 1.3 Nucleated RBC % 0 Sodium 141 Potassium 3.7 Chloride 106 Carbon Dioxide 30 Anion Gap 5 L BUN 16 Creatinine 0.7 Creat Clearance w eGFR > 60 Random Glucose 85 Calcium 9.0 Total Bilirubin 0.5 AST 13 L ALT 21 Alkaline Phosphatase 70 Total Protein 7.0 Albumin 3.6 HOSPITAL COURSE: Date of Admission:10/30/17 Patient is a 67 y/o female with a history of recent STEMI (09/05), HTN, HLD, CHF , DM, and hyperthyroidism who presents with high blood pressure. She presented with a blood pressure of 174/92. In the ED she was given Carvedilol 12.5 BID and Lisinopril 20 mg. Upon admission she was given Hydralazine IV push 10 mg. Patients home medications were adjusted and patient was monitored. She will continue to take: Amlodipine 10 mg po daily Carvedilol 12.5 PO BID Hydrochlorothiazide 25 mg PO daily Lisinopril 20 mg po BID Patient will follow with Dr. Mendez as an outpatient and will have her blood pressure monitored with him. Patient is stable and discharged home. Chest Xray: clear lungs, prominent mediastinum and sharps edges Date of Discharge: 11/01/17 Minutes to complete discharge: 37 Discharge Summary Reason For Visit: ACUTE KIDNEY INJURY,TWAVE INVERSION ON Current Active Problems Hypertension (Chronic) Condition: Improved - Instructions Diet, Activity, Other Instructions: You were admitted to the hospital for high blood pressure. You were given medication to control your blood pressure. You were monitored overnight. Your blood pressure improved and you were discharged home with a new medication regimen and instructions to follow up with your primary care physician. MEDICAL RECOMMENDATIONS Please stop taking Carvedilol 6.25 mg. Please start taking Carvedilol 12.5 mg twice a day. You were given additional medications to help control your blood pressure: Please start taking Hydrochlorothiazide 25 mg once a day. Please start taking Amlodipine 10 mg once a day. Please start taking lisinopril 20mg twice per day. Please continue taking the rest of your medications as prescribed. You will need to have your sodium levels checked in 1 week to make sure your electrolytes stay stable. CONSULT RECOMMENDATIONS Please make a follow up appointment with your primary care physician, Dr. Nichole within 1 week. Please follow up with your kidney doctor, Dr. Dang, within 1 week. Please follow up with your air brake adjuster within one week. If you have any new or worsening symptoms, especially headache, vision changes, numbness, tingling, weakness of one part of your body, neck pain, chest pain, shortness of breath, dizziness, or other symptoms, please go to the nearest emergency room immediately. If you are having severe or life threatening symptoms, or symptoms that make it unsafe to drive or have someone drive you, please call 911. Referrals: Kayode Brown MD [Primary Care Provider] - 1 Week Julia Dang MD [Staff Physician] - 1 Week Disposition: HOME - Home Medications Comprehensive Discharge Medication List: Ambulatory Orders Aspirin [ASA -] 81 mg PO DAILY 10/29/17 Atorvastatin Ca [Lipitor] 10 mg PO HS 10/29/17 Methimazole 5 mg PO TID 10/29/17 Carvedilol [Coreg -] 12.5 mg PO BID #60 tablet 10/31/17 Amlodipine Besylate [Norvasc -] 10 mg PO DAILY #30 tablet 11/01/17 Hydrochlorothiazide [Hctz -] 25 mg PO DAILY #30 tablet 11/01/17 Lisinopril [Prinivil] 20 mg PO BID #60 tablet 11/01/17 This patient is new to me today: No Emergency Visit: No Critical Care patient: No - Discharge Referral Referred to [facility] Med [facility] No
[2017-11-01 15:58] VITALS: TEMP 98.4
--- NOTE | 2017-11-01 21:11 | PN ---
Teaching Attending Note Name of Resident: Lina Hager ATTENDING PHYSICIAN STATEMENT I saw and evaluated the patient. I reviewed the resident's note and discussed the case with the resident. I agree with the resident's findings and plan as documented. SUBJECTIVE: Patient is comfortable in no acute distress. OBJECTIVE: Vital Signs Temperature 98.4 F 11/01/17 14:00 Pulse Rate 78 11/01/17 14:58 Respiratory Rate 188 H 11/01/17 14:58 Blood Pressure 142/68 11/01/17 14:58 O2 Sat by Pulse Oximetry (%) 98 11/01/17 08:21 CBCD WBC 3.7 K/mm3 (4.0-10.0) L 11/01/17 05:30 RBC 4.04 M/mm3 (3.60-5.2) 11/01/17 05:30 Hgb 11.7 GM/dL (10.7-15.3) 11/01/17 05:30 Hct 34.7 % (32.4-45.2) 11/01/17 05:30 MCV 86.0 fl (80-96) 11/01/17 05:30 MCHC 33.8 g/dl (32.0-36.0) 11/01/17 05:30 RDW 14.1 % (11.6-15.6) 11/01/17 05:30 Plt Count 181 K/MM3 (134-434) 11/01/17 05:30 MPV 8.6 fl (7.5-11.1) 11/01/17 05:30 CMP Sodium 141 mmol/L (136-145) 11/01/17 05:30 Potassium 3.7 mmol/L (3.5-5.1) 11/01/17 05:30 Chloride 106 mmol/L (98-107) 11/01/17 05:30 Carbon Dioxide 30 mmol/L (21-32) 11/01/17 05:30 Anion Gap 5 (8-16) L 11/01/17 05:30 BUN 16 mg/dL (7-18) 11/01/17 05:30 Creatinine 0.7 mg/dL (0.55-1.02) 11/01/17 05:30 Creat Clearance w eGFR > 60 (>60) 11/01/17 05:30 Random Glucose 85 mg/dL (74-106) 11/01/17 05:30 Calcium 9.0 mg/dL (8.5-10.1) 11/01/17 05:30 Total Bilirubin 0.5 mg/dL (0.2-1.0) 11/01/17 05:30 AST 13 U/L (15-37) L 11/01/17 05:30 ALT 21 U/L (12-78) 11/01/17 05:30 Alkaline Phosphatase 70 U/L (45-117) 11/01/17 05:30 Total Protein 7.0 g/dl (6.4-8.2) 11/01/17 05:30 Albumin 3.6 g/dl (3.4-5.0) 11/01/17 05:30 CARDIAC ENZYMES Creatine Kinase 116 IU/L (26-192) 10/29/17 22:27 Troponin I < 0.02 ng/ml (0.00-0.05) 10/30/17 05:03 Current Medications Generic Name Dose Route Start Last Admin Trade Name Arnulfoq PRN Reason Stop Dose Admin Amlodipine Besylate 10 mg 10/31/17 15:59 11/01/17 09:09 Norvasc - PO 10 mg DAILY ARI Administration Aspirin 81 mg 10/30/17 10:00 11/01/17 09:09 Asa - PO 81 mg DAILY ARI Administration Atorvastatin Calcium 10 mg 10/30/17 22:00 10/31/17 21:03 Lipitor - PO 10 mg HS ARI Administration Carvedilol 12.5 mg 10/30/17 10:00 11/01/17 09:09 Coreg - PO 12.5 mg BID ARI Administration Heparin Sodium (Porcine) 5,000 unit 10/30/17 06:00 11/01/17 13:01 Heparin - SQ Not Given TID [facility] Hydrochlorothiazide 25 mg 11/01/17 11:17 Hctz - PO DAILY ARI Lisinopril 20 mg 10/30/17 10:00 11/01/17 09:09 Prinivil PO 20 mg BID ARI Administration Methimazole 5 mg 10/30/17 06:00 11/01/17 13:01 Tapazole - PO 5 mg TID ARI Administration Home Medications Medication Instructions Recorded Aspirin [ASA -] 81 mg PO DAILY 10/29/17 Atorvastatin Ca [Lipitor] 10 mg PO HS 10/29/17 Methimazole 5 mg PO TID 10/29/17 Carvedilol [Coreg -] 12.5 mg PO BID #60 tablet 10/31/17 Amlodipine Besylate [Norvasc -] 10 mg PO DAILY #30 tablet 11/01/17 Hydrochlorothiazide [Hctz -] 25 mg PO DAILY #30 tablet 11/01/17 Lisinopril [Prinivil] 20 mg PO BID #60 tablet 11/01/17 PE:per resident's note ASSESSMENT AND PLAN: Patient is a 67 y/o female with a history of recent STEMI (09/05), HTN, HLD, CHF , DM, and hyperthyroidism who presents with high blood pressure. As per patient she checked her blood pressure at home and had readings of 201/109 in the left arm and 167/101 in the right arm. # Hypertensive urgency - improved on oral Carvedilol, Lisinopril and HCTZ.increased to 25mg added Norvasc 10 mg daily , No evidence of ACS at this time. low salt diet, exercise and weight loss stressed. will discharge the patient # ARF: improved. # CAD/Recent STEMI - Continue home regimen. DVT prophylaxis - Heparin 5000u sq tid. Advance directives - Full code
== END 2017-11-01 15:30 | disposition home or self-care (01) | DRG 305 ==
LOC: JER 21:07 → JERBED 10-30 01:12 → OBSVTOIN 10-30 02:07 → J4W 10-30 20:27
PROVIDERS: ADMIT Internal Medicine; ATTEND Internal Medicine
DX: I16.0 Hypertensive urgency (principal); N17.9 Acute kidney failure, unspecified; I25.2 Old myocardial infarction; E11.9 Type 2 diabetes mellitus without complications; E78.5 Hyperlipidemia, unspecified; I11.0 Hypertensive heart disease with heart failure; I50.9 Heart failure, unspecified; E03.9 Hypothyroidism, unspecified; Z87.891 Personal history of nicotine dependence; M54.5 Low back pain; I25.10 Atherosclerotic heart disease of native coronary artery without angina pectoris
CPT/HCPCS: 36415; 71046-TC-FY; 80053; 81003; 82550; 83735; 83880; 84100; 84443; 84484; 85025; 87086; 93005; 93010; 99283-25; G0378; J1644

== ENCOUNTER 2023-01-31 05:21 | Inpatient (IN) | payer MEDICARE ==
[2023-01-31 05:34] VITALS: BMI 29.2
[2023-01-31] MEDS ORDERED: ACETAMINOPHEN 1000 MG/100 ML BAG IVPB ONE (06:02)
[2023-01-31] MEDS ORDERED: ACETAMINOPHEN INJECTION 100 ML IVPB ONE (06:05)
[2023-01-31] MEDS ORDERED: VANCOMYCIN 1,000 MG in DEXTROSE 5%-WATER - 250 ML IVPB ONE (06:26)
[2023-01-31] MEDS ORDERED: PIPERACILLIN/TAZOB 3.375 GM 3.375 GM in DEXTROSE 5%-WATER - 50 ML IVPB ONE (06:26)
[2023-01-31] MEDS ORDERED: VANCOMYCIN 1 GRAM (PRE-DOCKED) 1,000 MG/250 ML BAG IVPB ONE (06:59)
[2023-01-31] MEDS ORDERED: PIPERACILLIN/TAZOB 3.375 GM 3.375 GM/50 ML BAG IVPB ONE (06:59)
[2023-01-31 07:15] LABS: CHLORIDE 102 mmol/L (98-107); SODIUM 132 mmol/L (136-145)
[2023-01-31 07:16] LABS: BASO % 0.6 % (0-2.0); EOS % 0.9 % (0-4.5); HEMATOCRIT 35.7 % (32.4-45.2); HEMOGLOBIN 11.3 GM/dL (10.7-15.3); LYMPH % 5.8 % (8-40); MCH 26.7 pg (25.7-33.7); MCHC 31.6 g/dl (32.0-36.0); MEAN CELL VOLUME 84.5 fl (80-96); MEAN PLT VOLUME 8.2 fl (7.5-11.1); MONO % 12.8 % (3.8-10.2); NEUT % 79.9 % (42.8-82.8); PLATELET COUNT 377 10^3/uL (134-434); RBC 4.22 M/mm3 (3.60-5.2); RDW 15.1 % (11.6-15.6); WHITE BLOOD COUNT 11.5 K/mm3 (4.0-10.0)
[2023-01-31 07:17] LABS: ALBUMIN 2.9 g/dl (3.4-5.0); CALCIUM 9.1 mg/dL (8.5-10.1); CO2 26 mmol/L (21-32); GLUCOSE,RANDOM 144 mg/dL (74-106); INR 1.29 (0.83-1.09); PROTHROMBIN TIME (PATIENT) 14.9 SEC (9.7-13.0)
[2023-01-31 07:19] LABS: ACTIVATED PTT 38.4 SECONDS (25.2-36.5)
[2023-01-31 07:20] LABS: CREATININE 0.8 mg/dL (0.55-1.3)
[2023-01-31 07:22] LABS: BILIRUBIN,TOTAL 0.8 mg/dL (0.2-1); TOT PROT 8.4 g/dl (6.4-8.2)
[2023-01-31 07:24] LABS: ALK PHOS 124 U/L (45-117)
[2023-01-31 07:29] LABS: ANION GAP 4 mmol/L (4-13); POTASSIUM 9.3 mmol/L (3.5-5.1); SGOT/AST 155 U/L (15-37); SGPT/ALT 83 U/L (13-61)
[2023-01-31 09:18] LABS: POTASSIUM 4.2 mmol/L (3.5-5.1)
[2023-01-31 09:19] LABS: BLOOD UREA NITROGEN 9.5 mg/dL (7-18)
[2023-01-31 09:22] LABS: CREATININE 0.7 mg/dL (0.55-1.3)
[2023-01-31 09:27] LABS: N-TERMINAL BNP 308.5 pg/ml (5-125)
[2023-01-31] MEDS ORDERED: CARVEDILOL 12.5 MG TABLET (FP) ONE ×2 (10:02→21:18)
[2023-01-31] MEDS ORDERED: AZITHROMYCIN IVPB 500 MG/250 ML BAG IVPB ONE (10:02)
[2023-01-31] MEDS ORDERED: ENOXAPARIN NA (PORCINE) 40 MG/0.4 ML DISP.SYRIN SQ ONE (10:02)
[2023-01-31] MEDS ORDERED: HYDROCHLOROTHIAZIDE 25 MG TABLET (FP) ONE ×2 (10:02→10:03)
[2023-01-31] MEDS ORDERED: LISINOPRIL 20 MG TABLET ONE ×2 (10:02→21:18)
[2023-01-31] MEDS ORDERED: amLODIPine BESYLATE 10 MG TABLET (FP) ONE (10:02)
[2023-01-31] MEDS ORDERED: ASPIRIN 81 MG CHEWABLE TABLETS ONE (10:02)
[2023-01-31] MEDS: ENOXAPARIN NA (PORCINE) 40 MG/0.4 ML DISP.SYRIN SQ SCH (10:21)
[2023-01-31] MEDS: ASPIRIN 81 MG CHEWABLE TABLETS PO SCH (10:21)
[2023-01-31] MEDS: HYDROCHLOROTHIAZIDE 25 MG TABLET (FP) PO SCH (10:21)
[2023-01-31] MEDS: CARVEDILOL 12.5 MG TABLET (FP) PO SCH ×2 (10:21→21:27)
[2023-01-31] MEDS: amLODIPine BESYLATE 10 MG TABLET (FP) PO SCH (10:22)
[2023-01-31] MEDS: LISINOPRIL 20 MG TABLET PO SCH ×2 (10:22→21:27)
[2023-01-31] MEDS: AZITHROMYCIN IVPB 500 MG/250 ML BAG IVPB SCH (10:22)
[2023-01-31 11:40] LABS: URINE APPEARANCE CLEAR; URINE BILIRUBIN NEGATIVE (NEGATIVE); URINE COLOR YELLOW; URINE GLUCOSE (UA) TRACE (NEGATIVE); URINE KETONE NEGATIVE (NEGATIVE); URINE LEUK ESTERASE NEGATIVE (NEGATIVE); URINE NITRITE NEGATIVE (NEGATIVE); URINE PROTEIN NEGATIVE (NEGATIVE); URINE UROBILINOGEN 0.2 mg/dL (0.2-1.0)
[2023-01-31] MEDS ORDERED: ACETAMINOPHEN 325 MG TABLET (FP) PO PRN ×5 (13:07→14:31)
[2023-01-31] MEDS ORDERED: oxyCODONE HCL 5 MG TABLET PO PRN (14:27)
[2023-01-31] MEDS: METHIMAZOLE 5 MG TABLET PO SCH ×2 (15:33→21:27)
[2023-01-31] MEDS ORDERED: ATORVASTATIN CA 20 MG TABLET (FP) ONE (21:18)
[2023-01-31] MEDS ORDERED: ZOLPIDEM TARTRATE 5 MG TABLET ONE (21:21)
[2023-01-31] MEDS: ATORVASTATIN CA 10 MG TABLET (FP) PO SCH (21:27)
[2023-01-31] MEDS: ZOLPIDEM TARTRATE 5 MG TABLET PO PRN (21:28)
[2023-02-01 08:28] LABS: BASO % 0.8 % (0-2.0); EOS % 1.1 % (0-4.5); HEMATOCRIT 30.1 % (32.4-45.2); HEMOGLOBIN 10.2 GM/dL (10.7-15.3); LYMPH % 9.2 % (8-40); MCH 27.8 pg (25.7-33.7); MCHC 33.9 g/dl (32.0-36.0); MEAN CELL VOLUME 81.8 fl (80-96); MEAN PLT VOLUME 7.5 fl (7.5-11.1); MONO % 17.5 % (3.8-10.2); NEUT % 71.4 % (42.8-82.8); PLATELET COUNT 370 10^3/uL (134-434); RBC 3.67 M/mm3 (3.60-5.2); RDW 14.8 % (11.6-15.6); WHITE BLOOD COUNT 7.5 K/mm3 (4.0-10.0)
[2023-02-01 08:51] LABS: POTASSIUM 4.1 mmol/L (3.5-5.1)
[2023-02-01 09:07] LABS: CALCIUM 8.9 mg/dL (8.5-10.1)
[2023-02-01 09:08] LABS: ALBUMIN 2.4 g/dl (3.4-5.0)
[2023-02-01 09:09] LABS: GAMMA GLUTAMYL TRANSPEPTIDASE 47 U/L (5-85)
[2023-02-01 09:11] LABS: CREATININE 0.7 mg/dL (0.55-1.3)
[2023-02-01 09:12] LABS: BILIRUBIN,TOTAL 0.7 mg/dL (0.2-1); IRON SERUM 16 ug/dL (50-175); TOTAL IRON BINDING CAPACITY 147 ug/dL (250-450)
[2023-02-01 09:13] LABS: TOT PROT 6.5 g/dl (6.4-8.2)
[2023-02-01] MEDS ORDERED: CEFTRIAXONE 1 GM/50 ML BAG ONE (09:47)
[2023-02-01] MEDS: ENOXAPARIN NA (PORCINE) 40 MG/0.4 ML DISP.SYRIN SQ SCH (10:09)
[2023-02-01] MEDS: amLODIPine BESYLATE 10 MG TABLET (FP) PO SCH (10:09)
[2023-02-01] MEDS: CEFTRIAXONE 1 GM in DEXTROSE 5%-WATER - 50 ML IVPB SCH (10:09)
[2023-02-01] MEDS: METHIMAZOLE 5 MG TABLET PO SCH ×3 (10:09→22:09)
[2023-02-01] MEDS: LISINOPRIL 20 MG TABLET PO SCH ×2 (10:09→22:11)
[2023-02-01] MEDS: CARVEDILOL 12.5 MG TABLET (FP) PO SCH ×2 (10:09→22:11)
[2023-02-01] MEDS: HYDROCHLOROTHIAZIDE 25 MG TABLET (FP) PO SCH (10:09)
[2023-02-01] MEDS: ASPIRIN 81 MG CHEWABLE TABLETS PO SCH (10:09)
[2023-02-01] MEDS ORDERED: AZITHROMYCIN IVPB 500 MG/250 ML BAG IVPB ONE (11:44)
[2023-02-01] MEDS: AZITHROMYCIN IVPB 500 MG/250 ML BAG IVPB SCH (11:54)
[2023-02-01] MEDS: ZOLPIDEM TARTRATE 5 MG TABLET PO PRN (22:09)
[2023-02-01] MEDS: ATORVASTATIN CA 10 MG TABLET (FP) PO SCH (22:11)
[2023-02-02] MEDS: METHIMAZOLE 5 MG TABLET PO SCH (06:51)
[2023-02-02 09:20] LABS: BASO % 0.7 % (0-2.0); EOS % 1.9 % (0-4.5); HEMATOCRIT 34.5 % (32.4-45.2); HEMOGLOBIN 11.7 GM/dL (10.7-15.3); LYMPH % 18.3 % (8-40); MCH 27.8 pg (25.7-33.7); MCHC 33.9 g/dl (32.0-36.0); MEAN CELL VOLUME 82.1 fl (80-96); MEAN PLT VOLUME 7.3 fl (7.5-11.1); MONO % 16.8 % (3.8-10.2); NEUT % 62.3 % (42.8-82.8); PLATELET COUNT 431 10^3/uL (134-434); RDW 15.3 % (11.6-15.6); WHITE BLOOD COUNT 6.6 K/mm3 (4.0-10.0)
[2023-02-02 09:44] LABS: POTASSIUM 3.7 mmol/L (3.5-5.1)
[2023-02-02 09:56] LABS: ALBUMIN 2.7 g/dl (3.4-5.0); BLOOD UREA NITROGEN 15.8 mg/dL (7-18)
[2023-02-02 09:59] LABS: CREATININE 0.8 mg/dL (0.55-1.3)
[2023-02-02 10:00] LABS: BILIRUBIN,TOTAL 1.4 mg/dL (0.2-1); TOT PROT 7.7 g/dl (6.4-8.2)
[2023-02-02] MEDS: CEFTRIAXONE 1 GM in DEXTROSE 5%-WATER - 50 ML IVPB SCH (10:40)
[2023-02-02] MEDS: HYDROCHLOROTHIAZIDE 25 MG TABLET (FP) PO SCH (10:41)
[2023-02-02] MEDS: ENOXAPARIN NA (PORCINE) 40 MG/0.4 ML DISP.SYRIN SQ SCH (10:41)
[2023-02-02] MEDS: CARVEDILOL 12.5 MG TABLET (FP) PO SCH ×2 (10:41→11:11)
[2023-02-02] MEDS: LISINOPRIL 20 MG TABLET PO SCH (10:41)
[2023-02-02] MEDS: amLODIPine BESYLATE 10 MG TABLET (FP) PO SCH (10:41)
[2023-02-02] MEDS: ASPIRIN 81 MG CHEWABLE TABLETS PO SCH (10:41)
[2023-02-02] MEDS: AZITHROMYCIN IVPB 500 MG/250 ML BAG IVPB SCH (11:34)
[2023-02-02] MEDS: oxyCODONE HCL 5 MG TABLET PO PRN ×2 (11:44→21:59)
[2023-02-02] MEDS ORDERED: guaiFENesin/D-M SUGAR-FREE/ACLHOL-FREE (200 MG/10 MG) 5 ML PO PRN (15:30)
[2023-02-02] MEDS ORDERED: oxyCODONE HCL 5 MG TABLET PO PRN ×2 (16:34→16:41)
[2023-02-02] MEDS ORDERED: MELATONIN 5 MG TABLETS PO PRN (16:35)
[2023-02-02] MEDS ORDERED: ACETAMINOPHEN 325 MG TABLET (FP) PO PRN (16:58)
[2023-02-02 18:07] VITALS: RESP 18
[2023-02-02] MEDS: ATORVASTATIN CA 10 MG TABLET (FP) PO SCH (22:01)
[2023-02-03] MEDS: ENOXAPARIN NA (PORCINE) 40 MG/0.4 ML DISP.SYRIN SQ SCH (10:00)
[2023-02-03] MEDS ORDERED: LISINOPRIL 20 MG TABLET PO SCH (10:00)
[2023-02-03] MEDS: CEFTRIAXONE 1 GM in DEXTROSE 5%-WATER - 50 ML IVPB SCH (10:00)
[2023-02-03] MEDS: AZITHROMYCIN 250 MG TABLET PO SCH (10:00)
[2023-02-03] MEDS: amLODIPine BESYLATE 10 MG TABLET (FP) PO SCH (10:01)
[2023-02-03] MEDS: ASPIRIN 81 MG CHEWABLE TABLETS PO SCH (10:01)
[2023-02-03] MEDS: PANTOPRAZOLE 40 MG TABLET PO SCH (10:01)
[2023-02-03 10:39] LABS: BASO % 1.1 % (0-2.0); EOS % 3.6 % (0-4.5); HEMATOCRIT 36.6 % (32.4-45.2); HEMOGLOBIN 11.7 GM/dL (10.7-15.3); LYMPH % 21.8 % (8-40); MCH 26.8 pg (25.7-33.7); MEAN CELL VOLUME 83.6 fl (80-96); MONO % 11.2 % (3.8-10.2); NEUT % 62.3 % (42.8-82.8); PLATELET COUNT 509 10^3/uL (134-434); RBC 4.38 M/mm3 (3.60-5.2); WHITE BLOOD COUNT 6.7 K/mm3 (4.0-10.0)
[2023-02-03] MEDS ORDERED: NAPROXEN 500 MG TABLET PO PRN ×2 (10:45→10:47)
[2023-02-03 10:56] LABS: POTASSIUM 3.9 mmol/L (3.5-5.1)
[2023-02-03 11:03] LABS: CREATININE 0.8 mg/dL (0.55-1.3); PHOSPHOROUS 3.8 mg/dL (2.5-4.9)
[2023-02-03 11:04] LABS: BILIRUBIN,TOTAL 0.5 mg/dL (0.2-1)
[2023-02-03 11:15] LABS: ALBUMIN 2.8 g/dl (3.4-5.0); BLOOD UREA NITROGEN 15.2 mg/dL (7-18); MAGNESIUM 2.7 mg/dL (1.8-2.4)
[2023-02-03] MEDS ORDERED: diphenhydrAMINE HCL 25 MG CAPSULE (FP) PO ONE (12:38)
[2023-02-03] MEDS: METHIMAZOLE 5 MG TABLET PO SCH (13:20)
[2023-02-03] MEDS: ATORVASTATIN CA 10 MG TABLET (FP) PO SCH (22:07)
[2023-02-04 07:30] LABS: BASO % 0.9 % (0-2.0); EOS % 2.8 % (0-4.5); HEMATOCRIT 35.4 % (32.4-45.2); HEMOGLOBIN 11.5 GM/dL (10.7-15.3); LYMPH % 24.7 % (8-40); MCH 27.4 pg (25.7-33.7); MCHC 32.6 g/dl (32.0-36.0); MEAN PLT VOLUME 6.9 fl (7.5-11.1); MONO % 11.3 % (3.8-10.2); NEUT % 60.3 % (42.8-82.8); PLATELET COUNT 509 10^3/uL (134-434); RBC 4.21 M/mm3 (3.60-5.2); WHITE BLOOD COUNT 6.5 K/mm3 (4.0-10.0)
[2023-02-04 07:37] LABS: POTASSIUM 4.2 mmol/L (3.5-5.1)
[2023-02-04 07:46] LABS: ALBUMIN 2.6 g/dl (3.4-5.0)
[2023-02-04 07:49] LABS: CREATININE 0.8 mg/dL (0.55-1.3)
[2023-02-04 07:51] LABS: BILIRUBIN,TOTAL 0.5 mg/dL (0.2-1); TOT PROT 7.3 g/dl (6.4-8.2)
[2023-02-04] MEDS: CEFTRIAXONE 1 GM in DEXTROSE 5%-WATER - 50 ML IVPB SCH (10:09)
[2023-02-04] MEDS: AZITHROMYCIN 250 MG TABLET PO SCH (10:10)
[2023-02-04] MEDS: ENOXAPARIN NA (PORCINE) 40 MG/0.4 ML DISP.SYRIN SQ SCH (10:10)
[2023-02-04] MEDS: METHIMAZOLE 5 MG TABLET PO SCH (10:10)
[2023-02-04] MEDS: ASPIRIN 81 MG CHEWABLE TABLETS PO SCH (10:10)
[2023-02-04] MEDS: PANTOPRAZOLE 40 MG TABLET PO SCH (10:10)
[2023-02-04] MEDS: amLODIPine BESYLATE 10 MG TABLET (FP) PO SCH (10:10)
[2023-02-04 11:29] VITALS: BP 143/77; PULSE 97; TEMP 97.9
== END 2023-02-04 14:43 | disposition home or self-care (01) | DRG 195 ==
LOC: JER 05:21 → JERBED 06:33 → J5S 02-01 19:22
PROVIDERS: ADMIT Student in an Organized Health Care Education/Training Program; ATTEND Internal Medicine
DX: J18.9 Pneumonia, unspecified organism (principal); I11.0 Hypertensive heart disease with heart failure; I50.9 Heart failure, unspecified; I25.2 Old myocardial infarction; E05.90 Thyrotoxicosis, unspecified without thyrotoxic crisis or storm; I25.10 Atherosclerotic heart disease of native coronary artery without angina pectoris; R74.01 Elevation of levels of liver transaminase levels; Z86.16 Personal history of COVID-19; R05.3 Chronic cough; M79.10 Myalgia, unspecified site; T78.3XXA Angioneurotic edema, initial encounter; T46.4X5A Adverse effect of angiotensin-converting-enzyme inhibitors, initial encounter; Y92.230 Patient room in hospital as the place of occurrence of the external cause
CPT/HCPCS: 0241U-QW; 36415; 71045-TC-FY; 71250-TC; 76705-TC; 80048; 80053; 81003; 82728; 82977; 83516; 83540; 83550; 83735; 83880; 84100; 84484; 85025; 85610; 85730; 86038; 86480; 86705; 87040; 87340; 87517; 87522; 87899; 93005; 93010; 93306-TC; 94761; 99285-25

== ENCOUNTER → 2023-04-26 | Day surgery (SDC) | payer MEDICARE, OTHER | END | disposition home or self-care (01) | LOC: JRADIR 10:01 | PROVIDERS: ATTEND Internal Medicine Endocrinology, Diabetes & Metabolism | PROC: 0G9H3ZX Drainage of Right Thyroid Gland Lobe, Percutaneous Approach, Diagnostic (ICD-10-PCS; principal; 2023-04-26) | DX: E04.1 Nontoxic single thyroid nodule (principal) | CPT/HCPCS: 10005; 76942; 88173; 88305-TC ==